=== PATIENT | male | born 1960 | race Caucasian/White ===

== ENCOUNTER 2016-10-08 19:25 | Inpatient (IN) | payer MEDICAID ==
[~2016-10-08] VITALS: Ht 157.5 cm; Wt 66.7 kg
[2016-10-08] MEDS ORDERED: IV SET PRIMARY 1 EA INFUS.SET MC ONE ×2 (19:48→20:49)
[2016-10-08] MEDS ORDERED: IV NS 0.9% 500 ML IV ONE (19:48)
[2016-10-08] MEDS ORDERED: IV NS 0.9% 500 ML BAG IV ONE (20:00)
[2016-10-08 20:15] LABS: BASOPHILS # (AUTO) 0.2 /CMM (0.0-0.2); BASOPHILS % (AUTO) 0.9 % (0.0-2.0); DIFF TOTAL % 100 %; EOSINOPHILS # (AUTO) 1.4 /CMM (0.0-0.7); EOSINOPHILS % (AUTO) 7.7 % (0.0-6.0); HEMATOCRIT 33 % (39-51); HEMOGLOBIN 10.8 g/dL (13.5-17.5); LYMPHOCYTES % (AUTO) 16.2 % (20.0-44.0); MEAN CORPUSCULAR HEMOGLOBIN 26 PG (26.0-33.0); MEAN CORPUSCULAR HGB CONC 32 g/dl (31.0-36.0); MEAN CORPUSCULAR VOLUME 80 fL (80-96); MONOCYTES # (AUTO) 1.9 /CMM (0.1-1.30); MONOCYTES % (AUTO) 10.3 % (2.0-12.0); NEUTROPHILS # (AUTO) 11.9 /CMM (1.8-8.9); NEUTROPHILS % (AUTO) 64.9 % (43.0-81.0); PLATELET COUNT (AUTO) 453 /CMM (150-450); RED BLOOD CELL COUNT(AUTO) 4.17 MIL/uL (4.5-6.0); WHITE BLOOD COUNT (AUTO) 18.4 K/uL (4.3-11.0)
[2016-10-08 20:27] LABS: INR 0.91 (0.87-1.13); PROTHROMBIN TIME 9.6 SECS (9.5-12.7)
[2016-10-08 20:28] LABS: ALANINE AMINOTRANSFERASE 17 U/L (12-78); ALBUMIN 2.8 g/dL (3.4-5.0); ANION GAP 9 (5-14); ASPARTATE AMINOTRANSFERASE 23 U/L (15-37); BILIRUBIN,DIRECT 0.1 mg/dL (0.0-0.2); BILIRUBIN,TOTAL 0.3 mg/dL (0.2-1.0); CARBON DIOXIDE 32 mmol/L (21-32); CHLORIDE 98 mmol/L (98-107); CREATININE 3.5 mg/dL (0.6-1.3); GFR 18 mL/min (>60); INDIRECT BILIRUBIN 0.2 mg/dL (0.0-1.1); POTASSIUM 3.7 mmol/L (3.5-5.1); SODIUM SERUM 136 mmol/L (136-145); TOTAL PROTEIN, SERUM 7.7 g/dL (6.4-8.2); UREA NITROGEN, BLOOD 39 mg/dL (7-18)
[2016-10-08 20:30] LABS: TROPONIN I < 0.017 ng/mL (0.00-0.056)
[2016-10-08 20:31] LABS: CALCIUM, SERUM 15.8 mg/dL (8.5-10.1); GLUCOSE 453 mg/dL (74-106)
[2016-10-08] MEDS ORDERED: IV NS 0.9% 1,000 ML ONE ×3 (20:49→23:50)
[2016-10-08] MEDS ORDERED: CEFTRIAXONE 1GM BAG (ER ONLY) 50 ML IV ONE ×2 (20:49→21:00)
[2016-10-08] MEDS ORDERED: SECONDARY IV SET 1 EA INFUS.SET MC ONE ×2 (20:49→22:37)
[2016-10-08 21:00] LABS: KETONES,URINE Negative (NEGATIVE); LEUKOCYTE ESTERASE ,URINE Negative (NEGATIVE)
[2016-10-08] MEDS ORDERED: IV NS 0.9% 1,000 ML BAG IV ONE ×2 (21:00→23:00)
[2016-10-08 21:04] LABS: ADD UA MICROSCOPIC YES
[2016-10-08 21:13] LABS: ADD URINE CULTURE NO; RBC,URINE 0-2 /HPF (0-2)
[2016-10-08] MEDS ORDERED: QUET25TA PO (21:33)
[2016-10-08] MEDS ORDERED: SITA100T PO (21:33)
[2016-10-08] MEDS ORDERED: PARO10TA26 PO (21:33)
[2016-10-08] MEDS ORDERED: LEFL20TA PO (21:33)
[2016-10-08] MEDS ORDERED: ATOR40TA PO (21:33)
[2016-10-08] MEDS ORDERED: GABA-534 PO (21:33)
[2016-10-08] MEDS ORDERED: MELA3TAB PO (21:33)
[2016-10-08 21:58] LABS: LACTIC ACID 2.7 mmol/L (0.4-2.0)
[2016-10-08] MEDS ORDERED: DEXTROSE 50%-WATER 50 ML DISP.SYRIN IV PRN (22:00)
[2016-10-08] MEDS ORDERED: MAGNESIUM HYDROXIDE 30 ML UDC PO PRN (22:00)
[2016-10-08] MEDS ORDERED: MAG HYDROX/AL HYDROX/SIMETH 30 ML UDC PO PRN (22:00)
[2016-10-08] MEDS ORDERED: ONDANSETRON HCL/PF 4 MG/2 ML VIAL IVP PRN (22:00)
[2016-10-08] MEDS ORDERED: ACETAMINOPHEN 325 MG TABLET PO PRN (22:00)
[2016-10-08] MEDS ORDERED: IV NS 0.9% 1,000 ML IV PRN (22:00)
[2016-10-08] MEDS ORDERED: Z GUARD REMEDY 2 OZ OINT TP PRN (22:00)
[2016-10-08 22:01] LABS: *LACTIC ACID REFLEX FLAG YES
[2016-10-08] MEDS ORDERED: QUETIAPINE FUMARATE 25 MG TABLET ONE (22:13)
[2016-10-08 22:18] VITALS: BP 130/81
[2016-10-08] MEDS ORDERED: IV SET PRIMARY PUMP SET 1 EA INFUS.SET MC ONE (22:36)
[2016-10-08 22:37] LABS: IRON, SERUM 40 ug/dl (50-175); PERCENT SATURATION 18 % (14-33); TOTAL IRON BINDING CAPACITY 224 ug/dl (250-450)
[2016-10-08] MEDS: BLOOD SUGAR DIAGNOSTIC 1 EACH STRIP VI SCH (22:42)
[2016-10-08] MEDS: *INSULIN REGULAR(HUMULIN R)HUM 100 UNIT/ML VIAL SQ PRN (22:56)
[2016-10-08] MEDS: QUETIAPINE FUMARATE 25 MG TABLET PO SCH (22:59)
[2016-10-08] MEDS ORDERED: LEVOFLOXACIN 750 MG /D5W 150ML 750 MG in PREMIX 1 EA IV SCH (23:00)
[2016-10-08] MEDS ORDERED: LEVOFLOXACIN 750 MG /D5W 150ML 150 ML IV ONE (23:49)
[2016-10-09] VITALS (7 sets, daily range): BP systolic 106–147; BP diastolic 60–76
[2016-10-09] MEDS: IV NS 0.9% 1,000 ML IV PRN (00:03)
[2016-10-09] MEDS ORDERED: ZOLPIDEM TARTRATE 5 MG TABLET ONE (01:44)
[2016-10-09] MEDS: ZOLPIDEM TARTRATE 5 MG TABLET PO PRN (01:48)
[2016-10-09 02:39] LABS: AMYLASE 48 U/L (25-115)
[2016-10-09 05:31] LABS: BASOPHILS # (AUTO) 0.1 /CMM (0.0-0.2); BASOPHILS % (AUTO) 0.7 % (0.0-2.0); DIFF TOTAL % 100 %; EOSINOPHILS # (AUTO) 0.9 /CMM (0.0-0.7); EOSINOPHILS % (AUTO) 4.9 % (0.0-6.0); HEMATOCRIT 32 % (39-51); LYMPHOCYTES # (AUTO) 1.2 /CMM (0.8-4.8); LYMPHOCYTES % (AUTO) 6.7 % (20.0-44.0); MEAN CORPUSCULAR HEMOGLOBIN 26 PG (26.0-33.0); MEAN CORPUSCULAR HGB CONC 32 g/dl (31.0-36.0); MEAN CORPUSCULAR VOLUME 81 fL (80-96); MONOCYTES % (AUTO) 5.4 % (2.0-12.0); NEUTROPHILS # (AUTO) 15.3 /CMM (1.8-8.9); NEUTROPHILS % (AUTO) 82.3 % (43.0-81.0); PLATELET COUNT (AUTO) 431 /CMM (150-450); WHITE BLOOD COUNT (AUTO) 18.5 K/uL (4.3-11.0)
[2016-10-09 05:44] LABS: CREATININE 2.9 mg/dL (0.6-1.3); PHOSPHORUS 3.7 mg/dL (2.5-4.9); POTASSIUM 3.7 mmol/L (3.5-5.1)
[2016-10-09 05:47] LABS: CALCIUM, SERUM 13.9 mg/dL (8.5-10.1)
[2016-10-09 05:49] LABS: INR 0.96 (0.87-1.13); PROTHROMBIN TIME 10.4 SECS (9.5-12.7)
[2016-10-09 05:54] LABS: THYROID STIMULATING HORMONE 0.63 uIU/mL (0.358-3.74)
[2016-10-09 06:04] LABS: HYPOCHROMASIA 1+
[2016-10-09 06:48] LABS: ERYTHROCYTE SEDIMENTATION RATE 49 MM/HR (0-20)
[2016-10-09] MEDS: BLOOD SUGAR DIAGNOSTIC 1 EACH STRIP VI SCH ×4 (07:02→22:30)
[2016-10-09] MEDS ORDERED: LEFLUNOMIDE PO SCH (09:00)
[2016-10-09] MEDS: PANTOPRAZOLE 40 MG TABLET.DR PO SCH (09:05)
[2016-10-09] MEDS: GABAPENTIN 300 MG CAPSULE PO SCH ×4 (09:05→21:31)
[2016-10-09] MEDS: PAROXETINE HCL 10 MG TABLET PO SCH (11:33)
[2016-10-09] MEDS: INSULIN REGULAR, HUMAN 100 UNIT/ML 3 ML VIAL SQ PRN ×2 (11:36→17:15)
[2016-10-09] MEDS: ATORVASTATIN 40 MG TABLET PO SCH (17:15)
[2016-10-09] MEDS ORDERED: Medication Not On Formulary EA (Melatonin 6 MG) PO SCH (18:00)
[2016-10-09 18:19] LABS: KETONES,URINE NEGATIVE (NEGATIVE); LEUKOCYTE ESTERASE ,URINE TRACE (NEGATIVE); PH,URINE 6.5 (5.0-8.0)
[2016-10-09 18:20] LABS: URINE TOTAL PROTEIN 38.4 mg/dL (0-11.9)
[2016-10-09 18:26] LABS: ADD UA MICROSCOPIC YES
[2016-10-09 18:29] LABS: ADD URINE CULTURE YES
[2016-10-09] MEDS: QUETIAPINE FUMARATE 25 MG TABLET PO SCH (22:25)
[2016-10-09] MEDS: *INSULIN REGULAR(HUMULIN R)HUM 100 UNIT/ML VIAL SQ PRN (22:59)
[2016-10-10] MEDS: BLOOD SUGAR DIAGNOSTIC 1 EACH STRIP VI SCH ×4 (05:45→21:33)
[2016-10-10 07:49] LABS: BASOPHILS # (AUTO) 0.1 /CMM (0.0-0.2); BASOPHILS % (AUTO) 0.5 % (0.0-2.0); DIFF TOTAL % 100 %; EOSINOPHILS # (AUTO) 1.7 /CMM (0.0-0.7); EOSINOPHILS % (AUTO) 10.7 % (0.0-6.0); HEMATOCRIT 30 % (39-51); HEMOGLOBIN 9.7 g/dL (13.5-17.5); LYMPHOCYTES # (AUTO) 3.6 /CMM (0.8-4.8); LYMPHOCYTES % (AUTO) 22.8 % (20.0-44.0); MEAN CORPUSCULAR HEMOGLOBIN 26 PG (26.0-33.0); MEAN CORPUSCULAR HGB CONC 32 g/dl (31.0-36.0); MEAN CORPUSCULAR VOLUME 80 fL (80-96); MONOCYTES # (AUTO) 1.6 /CMM (0.1-1.30); PLATELET COUNT (AUTO) 404 /CMM (150-450); RED BLOOD CELL COUNT(AUTO) 3.74 MIL/uL (4.5-6.0)
[2016-10-10 08:00] VITALS: BP 114/70
[2016-10-10 08:12] LABS: ALBUMIN 2.4 g/dL (3.4-5.0); BILIRUBIN,TOTAL 0.3 mg/dL (0.2-1.0); CALCIUM, SERUM 12.1 mg/dL (8.5-10.1); CREATININE 3.3 mg/dL (0.6-1.3); PHOSPHORUS 3.8 mg/dL (2.5-4.9); POTASSIUM 3.8 mmol/L (3.5-5.1); TOTAL PROTEIN, SERUM 6.5 g/dL (6.4-8.2)
[2016-10-10] MEDS: PANTOPRAZOLE 40 MG TABLET.DR PO SCH (08:27)
[2016-10-10] MEDS: PAROXETINE HCL 10 MG TABLET PO SCH (08:27)
[2016-10-10] MEDS: GABAPENTIN 300 MG CAPSULE PO SCH ×4 (08:27→21:32)
[2016-10-10 08:33] LABS: CREATININE, URINE 51.2 MG/DL (30.0-125.0); URINE TOTAL PROTEIN 42.7 mg/dL (0-11.9)
[2016-10-10 08:46] LABS: KETONES,URINE NEGATIVE (NEGATIVE); LEUKOCYTE ESTERASE ,URINE NEGATIVE (NEGATIVE)
[2016-10-10 08:49] LABS: ADD UA MICROSCOPIC YES
[2016-10-10 08:51] LABS: ADD URINE CULTURE NO; RBC,URINE 0-2 /HPF (0-2); WBC,URINE NONE SEEN /HPF (0-3)
[2016-10-10] MEDS: INSULIN REGULAR, HUMAN 100 UNIT/ML 3 ML VIAL SQ PRN ×2 (11:42→16:59)
[2016-10-10] MEDS: IV NS 0.9% 1,000 ML IV PRN (14:02)
[2016-10-10 16:00] VITALS: BP 119/70
[2016-10-10] MEDS: ATORVASTATIN 40 MG TABLET PO SCH (17:11)
[2016-10-10 20:00] VITALS: BP 121/70
[2016-10-10] MEDS: QUETIAPINE FUMARATE 25 MG TABLET PO SCH (21:33)
[2016-10-10] MEDS: *INSULIN REGULAR(HUMULIN R)HUM 100 UNIT/ML VIAL SQ PRN (21:37)
[2016-10-10] MEDS ORDERED: LEVOFLOXACIN 750 MG /D5W 150ML 750 MG in PREMIX 1 EA IV SCH (23:00)
[2016-10-11] MEDS: IV NS 0.9% 1,000 ML IV PRN ×3 (00:43→21:28)
[2016-10-11] MEDS: INSULIN REGULAR, HUMAN 100 UNIT/ML 3 ML VIAL SQ PRN ×3 (06:48→17:04)
[2016-10-11] MEDS: BLOOD SUGAR DIAGNOSTIC 1 EACH STRIP VI SCH ×5 (07:30→21:21)
[2016-10-11 07:54] VITALS: BP 105/60
[2016-10-11 08:00] VITALS: BP 105/60
[2016-10-11] MEDS: GABAPENTIN 300 MG CAPSULE PO SCH ×4 (08:42→21:21)
[2016-10-11] MEDS: PAROXETINE HCL 10 MG TABLET PO SCH (08:42)
[2016-10-11 09:15] LABS: BASOPHILS # (AUTO) 0.1 /CMM (0.0-0.2); BASOPHILS % (AUTO) 0.5 % (0.0-2.0); DIFF TOTAL % 100 %; EOSINOPHILS # (AUTO) 1.5 /CMM (0.0-0.7); EOSINOPHILS % (AUTO) 9.4 % (0.0-6.0); HEMATOCRIT 32 % (39-51); HEMOGLOBIN 10.1 g/dL (13.5-17.5); LYMPHOCYTES # (AUTO) 3.6 /CMM (0.8-4.8); LYMPHOCYTES % (AUTO) 22.6 % (20.0-44.0); MEAN CORPUSCULAR HEMOGLOBIN 26 PG (26.0-33.0); MEAN CORPUSCULAR HGB CONC 32 g/dl (31.0-36.0); MEAN CORPUSCULAR VOLUME 81 fL (80-96); MONOCYTES # (AUTO) 1.7 /CMM (0.1-1.30); MONOCYTES % (AUTO) 10.5 % (2.0-12.0); PLATELET COUNT (AUTO) 407 /CMM (150-450); RED BLOOD CELL COUNT(AUTO) 3.96 MIL/uL (4.5-6.0); WHITE BLOOD COUNT (AUTO) 15.9 K/uL (4.3-11.0)
[2016-10-11 09:40] LABS: CALCIUM, SERUM 11.9 mg/dL (8.5-10.1); PHOSPHORUS 3.9 mg/dL (2.5-4.9)
[2016-10-11 15:58] VITALS: BP 116/68
[2016-10-11 16:00] VITALS: BP 116/68
[2016-10-11] MEDS: ATORVASTATIN 40 MG TABLET PO SCH (17:04)
[2016-10-11 20:00] VITALS: BP 128/75
[2016-10-11] MEDS: QUETIAPINE FUMARATE 25 MG TABLET PO SCH (21:20)
[2016-10-11] MEDS: *INSULIN REGULAR(HUMULIN R)HUM 100 UNIT/ML VIAL SQ PRN (21:26)
[2016-10-11] MEDS: ZOLPIDEM TARTRATE 5 MG TABLET PO PRN (21:28)
[2016-10-12] MEDS: INSULIN REGULAR, HUMAN 100 UNIT/ML 3 ML VIAL SQ PRN ×3 (06:32→17:32)
[2016-10-12] MEDS: BLOOD SUGAR DIAGNOSTIC 1 EACH STRIP VI SCH ×4 (06:33→22:31)
[2016-10-12 08:00] VITALS: BP 111/73
[2016-10-12 08:07] LABS: *SPE ALBUMIN 2.7 g/dL (2.9-4.4)
[2016-10-12] MEDS: PAROXETINE HCL 10 MG TABLET PO SCH (08:18)
[2016-10-12] MEDS: GABAPENTIN 300 MG CAPSULE PO SCH ×4 (08:18→22:30)
[2016-10-12 08:47] LABS: BASOPHILS # (AUTO) 0.1 /CMM (0.0-0.2); BASOPHILS % (AUTO) 0.4 % (0.0-2.0); DIFF TOTAL % 100 %; EOSINOPHILS # (AUTO) 1.2 /CMM (0.0-0.7); HEMATOCRIT 31 % (39-51); HEMOGLOBIN 9.8 g/dL (13.5-17.5); LYMPHOCYTES % (AUTO) 21.9 % (20.0-44.0); MEAN CORPUSCULAR HEMOGLOBIN 26 PG (26.0-33.0); MEAN CORPUSCULAR HGB CONC 32 g/dl (31.0-36.0); MEAN CORPUSCULAR VOLUME 81 fL (80-96); MONOCYTES # (AUTO) 1.4 /CMM (0.1-1.30); MONOCYTES % (AUTO) 10.3 % (2.0-12.0); NEUTROPHILS % (AUTO) 58.4 % (43.0-81.0); PLATELET COUNT (AUTO) 392 /CMM (150-450); WHITE BLOOD COUNT (AUTO) 13.6 K/uL (4.3-11.0)
[2016-10-12 08:53] LABS: CALCIUM, SERUM 11.2 mg/dL (8.5-10.1); CREATININE 2.6 mg/dL (0.6-1.3); PHOSPHORUS 3.6 mg/dL (2.5-4.9); POTASSIUM 3.8 mmol/L (3.5-5.1)
[2016-10-12 10:41] LABS: %FREE PSA 16.6 % (0-10); FREE PSA 0.1 ng/mL (0.00-45)
[2016-10-12] MEDS ORDERED: PAMIDRONATE 30 MG in IV NS 0.9% 500 ML IV ONE (11:00)
[2016-10-12 11:35] LABS: BAND % (MANUAL) 1 % (0.0-5.0); EOSINOPHILS % (MANUAL) 2 % (0-4); LYMPHOCYTES % (MANUAL) 28 % (16-48)
[2016-10-12 11:36] LABS: ANISOCYTOSIS 1+; PLATELET ESTIMATE INCREASED
[2016-10-12] MEDS: ATORVASTATIN 40 MG TABLET PO SCH (16:59)
[2016-10-12 18:43] VITALS: BP 134/77
[2016-10-12] MEDS ORDERED: TUBERCULIN,PURIF.PROT.DERIV. 5 TU/0.1 ML VIAL ID ONE (19:00)
[2016-10-12 20:00] VITALS: BP 141/82
[2016-10-12] MEDS ORDERED: IV SET PRIMARY PUMP SET 1 EA INFUS.SET MC ONE (22:05)
[2016-10-12] MEDS: IV NS 0.9% 1,000 ML IV PRN (22:30)
[2016-10-12] MEDS: QUETIAPINE FUMARATE 25 MG TABLET PO SCH (22:31)
[2016-10-13 03:09] LABS: VIT D, 25-HYDROXY 14.3 ng/mL (30.0-100.0)
[2016-10-13 04:00] VITALS: BP 128/81
[2016-10-13 06:53] LABS: BASOPHILS # (AUTO) 0.1 /CMM (0.0-0.2); BASOPHILS % (AUTO) 0.4 % (0.0-2.0); DIFF TOTAL % 100 %; EOSINOPHILS # (AUTO) 1.2 /CMM (0.0-0.7); EOSINOPHILS % (AUTO) 8.7 % (0.0-6.0); HEMATOCRIT 32 % (39-51); HEMOGLOBIN 10.2 g/dL (13.5-17.5); LYMPHOCYTES # (AUTO) 3.1 /CMM (0.8-4.8); LYMPHOCYTES % (AUTO) 22.6 % (20.0-44.0); MEAN CORPUSCULAR HEMOGLOBIN 26 PG (26.0-33.0); MEAN CORPUSCULAR HGB CONC 32 g/dl (31.0-36.0); MEAN CORPUSCULAR VOLUME 81 fL (80-96); MONOCYTES # (AUTO) 1.7 /CMM (0.1-1.30); MONOCYTES % (AUTO) 12.2 % (2.0-12.0); NEUTROPHILS # (AUTO) 7.8 /CMM (1.8-8.9); NEUTROPHILS % (AUTO) 56.1 % (43.0-81.0); PLATELET COUNT (AUTO) 397 /CMM (150-450); RED BLOOD CELL COUNT(AUTO) 3.93 MIL/uL (4.5-6.0); WHITE BLOOD COUNT (AUTO) 13.9 K/uL (4.3-11.0)
[2016-10-13 07:09] LABS: INR 0.94 (0.87-1.13); PROTHROMBIN TIME 10.2 SECS (9.5-12.7)
[2016-10-13 07:28] LABS: CALCIUM, SERUM 12.9 mg/dL (8.5-10.1); CREATININE 2.5 mg/dL (0.6-1.3); POTASSIUM 4.2 mmol/L (3.5-5.1)
[2016-10-13 08:00] VITALS: BP 98/57
[2016-10-13] MEDS: PAROXETINE HCL 10 MG TABLET PO SCH (08:10)
[2016-10-13] MEDS: FERROUS SULFATE (325 MG) 325 MG/TAB TABLET PO SCH ×2 (08:10→17:20)
[2016-10-13] MEDS: BLOOD SUGAR DIAGNOSTIC 1 EACH STRIP VI SCH ×4 (08:10→22:49)
[2016-10-13] MEDS: GABAPENTIN 300 MG CAPSULE PO SCH ×4 (08:11→21:03)
[2016-10-13 11:12] LABS: PTH, INTACT 7 pg/mL (15-65)
[2016-10-13 16:00] VITALS: BP 119/78
[2016-10-13] MEDS: ATORVASTATIN 40 MG TABLET PO SCH (17:20)
[2016-10-13] MEDS: INSULIN REGULAR, HUMAN 100 UNIT/ML 3 ML VIAL SQ PRN ×2 (17:24→21:31)
[2016-10-13 20:00] VITALS: BP 130/78
[2016-10-13] MEDS: QUETIAPINE FUMARATE 25 MG TABLET PO SCH (21:03)
[2016-10-13] MEDS: ZOLPIDEM TARTRATE 5 MG TABLET PO PRN (21:22)
[2016-10-14 02:19] VITALS: BP 130/78
[2016-10-14 04:00] VITALS: BP 109/63
[2016-10-14] MEDS: *INSULIN REGULAR(HUMULIN R)HUM 100 UNIT/ML VIAL SQ PRN ×2 (06:29→21:36)
[2016-10-14 06:52] LABS: BASOPHILS # (AUTO) 0.1 /CMM (0.0-0.2); DIFF TOTAL % 100 %; EOSINOPHILS # (AUTO) 1.2 /CMM (0.0-0.7); EOSINOPHILS % (AUTO) 8.6 % (0.0-6.0); HEMATOCRIT 32 % (39-51); HEMOGLOBIN 10.3 g/dL (13.5-17.5); LYMPHOCYTES # (AUTO) 3.5 /CMM (0.8-4.8); LYMPHOCYTES % (AUTO) 24.5 % (20.0-44.0); MEAN CORPUSCULAR HEMOGLOBIN 26 PG (26.0-33.0); MEAN CORPUSCULAR HGB CONC 33 g/dl (31.0-36.0); MEAN CORPUSCULAR VOLUME 81 fL (80-96); MONOCYTES % (AUTO) 13.9 % (2.0-12.0); NEUTROPHILS # (AUTO) 7.4 /CMM (1.8-8.9); PLATELET COUNT (AUTO) 376 /CMM (150-450); WHITE BLOOD COUNT (AUTO) 14.2 K/uL (4.3-11.0)
[2016-10-14 06:53] LABS: ALBUMIN 2.8 g/dL (3.4-5.0); BILIRUBIN,TOTAL 0.3 mg/dL (0.2-1.0); CALCIUM, SERUM 11.8 mg/dL (8.5-10.1); CREATININE 2.3 mg/dL (0.6-1.3); PHOSPHORUS 4.2 mg/dL (2.5-4.9); POTASSIUM 3.7 mmol/L (3.5-5.1); TOTAL PROTEIN, SERUM 7.1 g/dL (6.4-8.2)
[2016-10-14] MEDS: BLOOD SUGAR DIAGNOSTIC 1 EACH STRIP VI SCH ×4 (07:30→21:37)
[2016-10-14 08:00] VITALS: BP 98/62
[2016-10-14] MEDS: FERROUS SULFATE (325 MG) 325 MG/TAB TABLET PO SCH ×2 (08:33→18:20)
[2016-10-14] MEDS: GABAPENTIN 300 MG CAPSULE PO SCH ×4 (08:33→21:23)
[2016-10-14] MEDS: PAROXETINE HCL 10 MG TABLET PO SCH (08:33)
[2016-10-14] MEDS: IV NS 0.9% 1,000 ML IV PRN (08:33)
[2016-10-14] MEDS: INSULIN REGULAR, HUMAN 100 UNIT/ML 3 ML VIAL SQ PRN ×3 (08:43→18:22)
[2016-10-14 09:40] LABS: BAND % (MANUAL) 1 % (0.0-5.0); EOSINOPHILS % (MANUAL) 9 % (0-4); LYMPHOCYTES % (MANUAL) 16 % (16-48)
[2016-10-14 09:41] LABS: ANISOCYTOSIS 1+; HYPOCHROMASIA 1+; PLATELET ESTIMATE INCREASED
[2016-10-14] MEDS ORDERED: SODIUM CL FOR INHALATION 3% 15 ML VIAL.NEB IH ONE (09:52)
[2016-10-14] MEDS ORDERED: IV SET PRIMARY PUMP SET 1 EA INFUS.SET MC ONE (11:09)
[2016-10-14 16:00] VITALS: BP 122/75
[2016-10-14] MEDS: ATORVASTATIN 40 MG TABLET PO SCH (18:20)
[2016-10-14] MEDS ORDERED: LIDOCAINE 1% INJ 50 ML MDV IJ ONE (18:30)
[2016-10-14 20:00] VITALS: BP 127/83
[2016-10-14] MEDS: QUETIAPINE FUMARATE 25 MG TABLET PO SCH (21:23)
[2016-10-14] MEDS: ZOLPIDEM TARTRATE 5 MG TABLET PO PRN (22:08)
[2016-10-15] MEDS: IV NS 0.9% 1,000 ML IV PRN ×2 (03:31→21:38)
[2016-10-15 04:00] VITALS: BP 98/72
[2016-10-15] MEDS: BLOOD SUGAR DIAGNOSTIC 1 EACH STRIP VI SCH ×4 (06:49→21:04)
[2016-10-15] MEDS: INSULIN REGULAR, HUMAN 100 UNIT/ML 3 ML VIAL SQ PRN ×4 (06:49→21:21)
[2016-10-15 07:03] LABS: BASOPHILS # (AUTO) 0.1 /CMM (0.0-0.2); BASOPHILS % (AUTO) 0.8 % (0.0-2.0); DIFF TOTAL % 100 %; EOSINOPHILS # (AUTO) 1.2 /CMM (0.0-0.7); EOSINOPHILS % (AUTO) 8.4 % (0.0-6.0); HEMATOCRIT 30 % (39-51); HEMOGLOBIN 9.8 g/dL (13.5-17.5); LYMPHOCYTES # (AUTO) 3.5 /CMM (0.8-4.8); LYMPHOCYTES % (AUTO) 23.9 % (20.0-44.0); MEAN CORPUSCULAR HEMOGLOBIN 26 PG (26.0-33.0); MEAN CORPUSCULAR HGB CONC 32 g/dl (31.0-36.0); MEAN CORPUSCULAR VOLUME 81 fL (80-96); MONOCYTES # (AUTO) 2.1 /CMM (0.1-1.30); MONOCYTES % (AUTO) 14.5 % (2.0-12.0); NEUTROPHILS # (AUTO) 7.7 /CMM (1.8-8.9); NEUTROPHILS % (AUTO) 52.4 % (43.0-81.0); PLATELET COUNT (AUTO) 365 /CMM (150-450); RED BLOOD CELL COUNT(AUTO) 3.74 MIL/uL (4.5-6.0); WHITE BLOOD COUNT (AUTO) 14.7 K/uL (4.3-11.0)
[2016-10-15 07:47] LABS: CALCIUM, SERUM 11.1 mg/dL (8.5-10.1); CREATININE 2.2 mg/dL (0.6-1.3); PHOSPHORUS 3.5 mg/dL (2.5-4.9); POTASSIUM 3.9 mmol/L (3.5-5.1)
[2016-10-15 08:00] VITALS: BP 104/70
[2016-10-15] MEDS: FERROUS SULFATE (325 MG) 325 MG/TAB TABLET PO SCH ×2 (08:17→16:59)
[2016-10-15] MEDS: PAROXETINE HCL 10 MG TABLET PO SCH (08:17)
[2016-10-15] MEDS: GABAPENTIN 300 MG CAPSULE PO SCH ×4 (08:17→21:04)
[2016-10-15 08:55] LABS: ALBUMIN 2.7 g/dL (3.4-5.0); BILIRUBIN,TOTAL 0.3 mg/dL (0.2-1.0); TOTAL PROTEIN, SERUM 7.1 g/dL (6.4-8.2)
[2016-10-15] MEDS ORDERED: Magnesium 1GM/D5W 100ML PREMIX 100 ML IV SCH (13:00)
[2016-10-15 16:00] VITALS: BP 117/75
[2016-10-15] MEDS: ATORVASTATIN 40 MG TABLET PO SCH (16:59)
[2016-10-15] MEDS ORDERED: LEVOFLOXACIN (500MG) 500 MG TABLET PO SCH (17:00)
[2016-10-15] MEDS ORDERED: CEFEPIME 1 GM VIAL IM SCH (18:00)
[2016-10-15] MEDS ORDERED: SECONDARY IV SET 1 EA INFUS.SET MC ONE (18:06)
[2016-10-15] MEDS: CEFEPIME 1 GM in IV D5W 50 ML IV SCH (18:11)
[2016-10-15 20:00] VITALS: BP_SYST 110; BP_SYST 120; BP_DIAS 58; BP_DIAS 73
[2016-10-15] MEDS: QUETIAPINE FUMARATE 25 MG TABLET PO SCH (21:04)
[2016-10-15] MEDS: HYDROCODONE/APAP 5/325MG 1 EACH TABLET PO PRN (21:04)
[2016-10-15] MEDS ORDERED: IV SET PRIMARY PUMP SET 1 EA INFUS.SET MC ONE (21:12)
[2016-10-15] MEDS: ZOLPIDEM TARTRATE 5 MG TABLET PO PRN (21:19)
[2016-10-16 04:00] VITALS: BP 107/65
[2016-10-16] MEDS: HYDROCODONE/APAP 5/325MG 1 EACH TABLET PO PRN ×3 (05:40→21:21)
[2016-10-16 06:34] LABS: BASOPHILS # (AUTO) 0.1 /CMM (0.0-0.2); BASOPHILS % (AUTO) 0.8 % (0.0-2.0); DIFF TOTAL % 100 %; EOSINOPHILS # (AUTO) 1.3 /CMM (0.0-0.7); EOSINOPHILS % (AUTO) 9.4 % (0.0-6.0); HEMATOCRIT 29 % (39-51); HEMOGLOBIN 9.3 g/dL (13.5-17.5); LYMPHOCYTES # (AUTO) 2.5 /CMM (0.8-4.8); LYMPHOCYTES % (AUTO) 17.3 % (20.0-44.0); MEAN CORPUSCULAR HEMOGLOBIN 26 PG (26.0-33.0); MEAN CORPUSCULAR HGB CONC 32 g/dl (31.0-36.0); MEAN CORPUSCULAR VOLUME 81 fL (80-96); MONOCYTES # (AUTO) 1.7 /CMM (0.1-1.30); MONOCYTES % (AUTO) 11.9 % (2.0-12.0); NEUTROPHILS # (AUTO) 8.6 /CMM (1.8-8.9); NEUTROPHILS % (AUTO) 60.6 % (43.0-81.0); PLATELET COUNT (AUTO) 341 /CMM (150-450); RED BLOOD CELL COUNT(AUTO) 3.57 MIL/uL (4.5-6.0); WHITE BLOOD COUNT (AUTO) 14.2 K/uL (4.3-11.0)
[2016-10-16 06:50] LABS: CALCIUM, SERUM 10.9 mg/dL (8.5-10.1); CREATININE 2.1 mg/dL (0.6-1.3); PHOSPHORUS 3.7 mg/dL (2.5-4.9); POTASSIUM 4.1 mmol/L (3.5-5.1)
[2016-10-16] MEDS: INSULIN REGULAR, HUMAN 100 UNIT/ML 3 ML VIAL SQ PRN ×2 (06:57→11:58)
[2016-10-16] MEDS: BLOOD SUGAR DIAGNOSTIC 1 EACH STRIP VI SCH ×4 (07:00→21:21)
[2016-10-16 08:00] VITALS: BP 117/76
[2016-10-16] MEDS: SODIUM CL FOR INHALATION 3% 15 ML VIAL.NEB IH SCH ×3 (08:25→20:30)
[2016-10-16] MEDS: GABAPENTIN 300 MG CAPSULE PO SCH ×4 (08:42→21:21)
[2016-10-16] MEDS: PAROXETINE HCL 10 MG TABLET PO SCH (08:42)
[2016-10-16] MEDS: FERROUS SULFATE (325 MG) 325 MG/TAB TABLET PO SCH ×2 (08:42→16:12)
[2016-10-16] MEDS: IV NS 0.9% 1,000 ML IV PRN ×2 (10:27→21:28)
[2016-10-16 16:00] VITALS: BP 130/75
[2016-10-16] MEDS ORDERED: LEVOFLOXACIN (250MG) 250 MG TABLET PO SCH (17:00)
[2016-10-16] MEDS: ATORVASTATIN 40 MG TABLET PO SCH (17:54)
[2016-10-16] MEDS: CEFEPIME 1 GM in IV D5W 50 ML IV SCH (17:55)
[2016-10-16 20:00] VITALS: BP 123/72
[2016-10-16] MEDS: QUETIAPINE FUMARATE 25 MG TABLET PO SCH (21:21)
[2016-10-16] MEDS: *INSULIN REGULAR(HUMULIN R)HUM 100 UNIT/ML VIAL SQ PRN (21:25)
[2016-10-16] MEDS: ZOLPIDEM TARTRATE 5 MG TABLET PO PRN (22:00)
[2016-10-17] MEDS: SODIUM CL FOR INHALATION 3% 15 ML VIAL.NEB IH SCH ×4 (02:30→20:10)
[2016-10-17] MEDS: HYDROCODONE/APAP 5/325MG 1 EACH TABLET PO PRN ×5 (02:52→21:35)
[2016-10-17 04:00] VITALS: BP 104/66
[2016-10-17] MEDS: BLOOD SUGAR DIAGNOSTIC 1 EACH STRIP VI SCH ×4 (06:31→21:35)
[2016-10-17] MEDS: INSULIN REGULAR, HUMAN 100 UNIT/ML 3 ML VIAL SQ PRN ×2 (06:32→17:17)
[2016-10-17 08:00] VITALS: BP 117/78
[2016-10-17] MEDS: PAROXETINE HCL 10 MG TABLET PO SCH (08:12)
[2016-10-17] MEDS: FERROUS SULFATE (325 MG) 325 MG/TAB TABLET PO SCH ×2 (08:12→17:15)
[2016-10-17] MEDS: GABAPENTIN 300 MG CAPSULE PO SCH ×4 (08:12→21:35)
[2016-10-17 16:00] VITALS: BP 138/76
[2016-10-17] MEDS: CEFEPIME 1 GM in IV D5W 50 ML IV SCH (17:15)
[2016-10-17] MEDS: ATORVASTATIN 40 MG TABLET PO SCH (17:15)
[2016-10-17] MEDS: IV NS 0.9% 1,000 ML IV PRN (19:59)
[2016-10-17 20:00] VITALS: BP 125/74
[2016-10-17] MEDS ORDERED: AZITHROMYCIN 500 MG in IV D5W 250 ML IV SCH (21:30)
[2016-10-17] MEDS: ZOLPIDEM TARTRATE 5 MG TABLET PO PRN (21:35)
[2016-10-17] MEDS: QUETIAPINE FUMARATE 25 MG TABLET PO SCH (21:35)
[2016-10-18] MEDS: HYDROCODONE/APAP 5/325MG 1 EACH TABLET PO PRN ×5 (01:20→22:18)
[2016-10-18] MEDS: SODIUM CL FOR INHALATION 3% 15 ML VIAL.NEB IH SCH ×5 (02:30→22:11)
[2016-10-18 04:00] VITALS: BP 116/70
[2016-10-18] MEDS ORDERED: MORPHINE SULFATE INJ 2 MG/ML DISP.SYRIN ONE (04:25)
[2016-10-18] MEDS ORDERED: MORPHINE SULFATE INJ 2 MG/ML DISP.SYRIN IVP ONE (04:30)
[2016-10-18] MEDS: BLOOD SUGAR DIAGNOSTIC 1 EACH STRIP VI SCH ×4 (06:37→22:19)
[2016-10-18] MEDS: INSULIN REGULAR, HUMAN 100 UNIT/ML 3 ML VIAL SQ PRN ×2 (06:42→22:20)
[2016-10-18 08:00] VITALS: BP 117/68
[2016-10-18] MEDS: GABAPENTIN 300 MG CAPSULE PO SCH ×4 (08:28→22:18)
[2016-10-18] MEDS: FERROUS SULFATE (325 MG) 325 MG/TAB TABLET PO SCH ×2 (08:28→17:12)
[2016-10-18] MEDS ORDERED: AZITHROMYCIN 500 MG in IV D5W 250 ML IV SCH ×2 (08:30→09:00)
[2016-10-18] MEDS: PAROXETINE HCL 10 MG TABLET PO SCH (08:33)
[2016-10-18] MEDS: AZITHROMYCIN 500 MG in IV D5W 250 ML IV SCH (08:34)
[2016-10-18] MEDS ORDERED: SECONDARY IV SET 1 EA INFUS.SET MC ONE ×2 (08:41→16:59)
[2016-10-18] MEDS ORDERED: IV SET PRIMARY PUMP SET 1 EA INFUS.SET MC ONE (08:41)
[2016-10-18 10:55] LABS: BASOPHILS # (AUTO) 0.2 /CMM (0.0-0.2); BASOPHILS % (AUTO) 1.3 % (0.0-2.0); DIFF TOTAL % 100 %; EOSINOPHILS # (AUTO) 1.3 /CMM (0.0-0.7); EOSINOPHILS % (AUTO) 10.3 % (0.0-6.0); HEMATOCRIT 32 % (39-51); HEMOGLOBIN 10.1 g/dL (13.5-17.5); LYMPHOCYTES % (AUTO) 23.9 % (20.0-44.0); MEAN CORPUSCULAR HEMOGLOBIN 26 PG (26.0-33.0); MEAN CORPUSCULAR HGB CONC 31 g/dl (31.0-36.0); MEAN CORPUSCULAR VOLUME 82 fL (80-96); MONOCYTES # (AUTO) 1.7 /CMM (0.1-1.30); MONOCYTES % (AUTO) 13.5 % (2.0-12.0); NEUTROPHILS # (AUTO) 6.5 /CMM (1.8-8.9); PLATELET COUNT (AUTO) 391 /CMM (150-450); RED BLOOD CELL COUNT(AUTO) 3.92 MIL/uL (4.5-6.0); WHITE BLOOD COUNT (AUTO) 12.7 K/uL (4.3-11.0)
[2016-10-18 11:07] LABS: ALBUMIN 2.8 g/dL (3.4-5.0); BILIRUBIN,TOTAL 0.4 mg/dL (0.2-1.0); CALCIUM, SERUM 10.3 mg/dL (8.5-10.1); PHOSPHORUS 3.4 mg/dL (2.5-4.9); POTASSIUM 3.9 mmol/L (3.5-5.1); TOTAL PROTEIN, SERUM 7.2 g/dL (6.4-8.2)
[2016-10-18] MEDS: *INSULIN REGULAR(HUMULIN R)HUM 100 UNIT/ML VIAL SQ PRN (12:57)
[2016-10-18 16:00] VITALS: BP 109/60
[2016-10-18 16:31] VITALS: BP 109/60
[2016-10-18] MEDS: ATORVASTATIN 40 MG TABLET PO SCH (17:12)
[2016-10-18] MEDS: CEFEPIME 1 GM in IV D5W 50 ML IV SCH (18:11)
[2016-10-18 20:00] VITALS: BP 115/77
[2016-10-18] MEDS: QUETIAPINE FUMARATE 25 MG TABLET PO SCH (22:19)
[2016-10-18] MEDS: ZOLPIDEM TARTRATE 5 MG TABLET PO PRN (22:50)
[2016-10-19] MEDS: SODIUM CL FOR INHALATION 3% 15 ML VIAL.NEB IH SCH ×4 (02:30→19:25)
[2016-10-19 04:00] VITALS: BP 106/57
[2016-10-19] MEDS: HYDROCODONE/APAP 5/325MG 1 EACH TABLET PO PRN ×4 (05:11→18:50)
[2016-10-19] MEDS: BLOOD SUGAR DIAGNOSTIC 1 EACH STRIP VI SCH ×3 (06:49→17:52)
[2016-10-19 07:23] LABS: BASOPHILS # (AUTO) 0.2 /CMM (0.0-0.2); BASOPHILS % (AUTO) 1.1 % (0.0-2.0); DIFF TOTAL % 100 %; EOSINOPHILS # (AUTO) 1.3 /CMM (0.0-0.7); EOSINOPHILS % (AUTO) 9.6 % (0.0-6.0); HEMATOCRIT 30 % (39-51); HEMOGLOBIN 9.5 g/dL (13.5-17.5); LYMPHOCYTES # (AUTO) 2.7 /CMM (0.8-4.8); LYMPHOCYTES % (AUTO) 19.4 % (20.0-44.0); MEAN CORPUSCULAR HEMOGLOBIN 26 PG (26.0-33.0); MEAN CORPUSCULAR HGB CONC 32 g/dl (31.0-36.0); MEAN CORPUSCULAR VOLUME 81 fL (80-96); MONOCYTES % (AUTO) 14.7 % (2.0-12.0); NEUTROPHILS # (AUTO) 7.7 /CMM (1.8-8.9); NEUTROPHILS % (AUTO) 55.2 % (43.0-81.0); PLATELET COUNT (AUTO) 401 /CMM (150-450); RED BLOOD CELL COUNT(AUTO) 3.64 MIL/uL (4.5-6.0); WHITE BLOOD COUNT (AUTO) 13.9 K/uL (4.3-11.0)
[2016-10-19 07:40] LABS: CALCIUM, SERUM 10.1 mg/dL (8.5-10.1); CREATININE 1.9 mg/dL (0.6-1.3); PHOSPHORUS 3.3 mg/dL (2.5-4.9); POTASSIUM 3.8 mmol/L (3.5-5.1)
[2016-10-19 08:00] VITALS: BP 116/75
[2016-10-19] MEDS: PAROXETINE HCL 10 MG TABLET PO SCH (09:39)
[2016-10-19] MEDS: FERROUS SULFATE (325 MG) 325 MG/TAB TABLET PO SCH ×2 (09:39→17:52)
[2016-10-19] MEDS: AZITHROMYCIN 500 MG in IV D5W 250 ML IV SCH (09:39)
[2016-10-19] MEDS: GABAPENTIN 300 MG CAPSULE PO SCH ×3 (09:39→17:52)
[2016-10-19] MEDS: INSULIN REGULAR, HUMAN 100 UNIT/ML 3 ML VIAL SQ PRN (12:32)
[2016-10-19] MEDS ORDERED: ISON300T4 PO (13:10)
[2016-10-19 16:00] VITALS: BP 106/70
[2016-10-19] MEDS: CEFEPIME 1 GM in IV D5W 50 ML IV SCH (17:52)
[2016-10-19] MEDS: IV NS 0.9% 1,000 ML IV PRN (17:52)
[2016-10-19] MEDS: ATORVASTATIN 40 MG TABLET PO SCH (17:52)
== END 2016-10-19 20:41 | DRG 871 ==
LOC: EDSEX 19:28 → ER 19:28 → TELE 21:37 → MED 10-09 08:39 → MEDSG1 10-12 18:16
PROVIDERS: ADMIT Internal Medicine; ATTEND Internal Medicine
PROC: 05H533Z Insertion of Infusion Device into Right Subclavian Vein, Percutaneous Approach (ICD-10-PCS; principal; 2016-10-14)
DX: A41.9 Sepsis, unspecified organism (principal); N17.0 Acute kidney failure with tubular necrosis; C90.00 Multiple myeloma not having achieved remission; N18.4 Chronic kidney disease, stage 4 (severe); E44.0 Moderate protein-calorie malnutrition; E87.2 Acidosis; E11.22 Type 2 diabetes mellitus with diabetic chronic kidney disease; E11.65 Type 2 diabetes mellitus with hyperglycemia; I13.10 Hypertensive heart and chronic kidney disease without heart failure, with stage 1 through stage 4 chronic kidney disease, or unspecified chronic kidney disease; E78.5 Hyperlipidemia, unspecified; G62.9 Polyneuropathy, unspecified; K21.9 Gastro-esophageal reflux disease without esophagitis; Z87.891 Personal history of nicotine dependence; F32.9 Major depressive disorder, single episode, unspecified; D63.8 Anemia in other chronic diseases classified elsewhere; E83.52 Hypercalcemia; I88.9 Nonspecific lymphadenitis, unspecified; D86.9 Sarcoidosis, unspecified; E86.1 Hypovolemia; F41.9 Anxiety disorder, unspecified; Z90.81 Acquired absence of spleen
CPT/HCPCS: 36415; 70260-TC; 71010-TC; 71250-TC; 72192-TC; 74150-TC; 76770-TC; 76942-TC; 80048-TC; 80053-TC; 80061-TC; 80076-TC; 81000-TC; 82150-TC; 82164; 82232; 82306; 82550-TC; 82570-TC; 82652; 82728-TC; 82746; 82945-TC; 82962-TC; 83540-TC; 83605-TC; 83615-TC; 83690-TC; 83735-TC; 83970; 84100-TC; 84153-TC; 84154-TC; 84155; 84155-TC; 84165; 84300-TC; 84439-TC; 84443-TC; 84484-TC; 85025-TC; 85045-TC; 85610-TC; 85652-TC; 85730-TC; 86140-TC; 86431-TC; 86580-TC; 87040-TC; 87081-TC; 87086-TC; 87116; 87206; 88305-TC; 88312-TC; 93307-TC; 94640-TC; 97001-TC; 97003-TC; 97116-TC; 97530-TC; A4216; A4218; A4606; A6402; J0456; J0692; J0696; J1815; J1956; J2270; J2430; J3475; J3490; J7030; J7040; J7060; Z7610

== ENCOUNTER 2016-10-30 13:33 | Emergency (ER) | payer MEDICAID ==
[~2016-10-30] VITALS: Ht 165.1 cm; Wt 52.2 kg
[~2016-10-30 13:33] MED LIST: ATOR40TA PO; GABA-534 PO; ISON300T4 PO; LEFL20TA PO; MELA3TAB PO; PARO10TA26 PO; QUET25TA PO; SITA100T PO
[2016-10-30 17:53] VITALS: BP 120/60
== END 2016-10-30 17:43 | disposition home or self-care (01) ==
LOC: ER 13:35
DX: J18.9 Pneumonia, unspecified organism (principal); K21.9 Gastro-esophageal reflux disease without esophagitis; F41.9 Anxiety disorder, unspecified; F20.9 Schizophrenia, unspecified; G47.00 Insomnia, unspecified
CPT/HCPCS: 71010; 82962; 99283; A4606; Z7610

== ENCOUNTER 2016-10-30 22:24 | Inpatient (IN) | payer MEDICAID ==
[~2016-10-30] VITALS: Ht 157.5 cm; Wt 64.0 kg
--- NOTE | 2016-10-30 23:06 | NUR ---
CALLED NURSING SUP. FOR NEGATIVE AIR PRESSURE ROOM TO R/U TB
--- NOTE | 2016-10-30 23:07 | NUR ---
PAGED EBER HARRELL NP
[2016-10-30 23:19] LABS: BASOPHILS # (AUTO) 0.1 /CMM (0.0-0.2); EOSINOPHILS # (AUTO) 1.5 /CMM (0.0-0.7); EOSINOPHILS % (AUTO) 9.8 % (0.0-6.0); HEMATOCRIT 36 % (39-51); HEMOGLOBIN 11.3 g/dL (13.5-17.5); LYMPHOCYTES # (AUTO) 3.8 /CMM (0.8-4.8); LYMPHOCYTES % (AUTO) 24.9 % (20.0-44.0); MEAN CORPUSCULAR HEMOGLOBIN 26 PG (26.0-33.0); MEAN CORPUSCULAR HGB CONC 32 g/dl (31.0-36.0); MEAN CORPUSCULAR VOLUME 82 fL (80-96); MONOCYTES # (AUTO) 1.9 /CMM (0.1-1.30); MONOCYTES % (AUTO) 12.5 % (2.0-12.0); NEUTROPHILS # (AUTO) 7.8 /CMM (1.8-8.9); NEUTROPHILS % (AUTO) 51.8 % (43.0-81.0); PLATELET COUNT (AUTO) 396 /CMM (150-450); RED BLOOD CELL COUNT(AUTO) 4.36 MIL/uL (4.5-6.0); WHITE BLOOD COUNT (AUTO) 15.1 K/uL (4.3-11.0)
--- NOTE | 2016-10-30 23:23 | NUR ---
DR. GONZALEZ SPEAKING TO JACKELINE CASILLAS REGARDING ADMISSION.
[2016-10-30 23:33] LABS: CREATININE 2.1 mg/dL (0.6-1.3); INR 0.93 (0.87-1.13); POTASSIUM 3.7 mmol/L (3.5-5.1)
--- NOTE | 2016-10-30 23:36 | NUR ---
PT ASSIGNED TO BED MS 101.
[2016-10-30 23:39] LABS: CALCIUM, SERUM 13.5 mg/dL (8.5-10.1)
[2016-10-30 23:40] LABS: LACTIC ACID 2.3 mmol/L (0.4-2.0)
--- NOTE | 2016-10-30 23:40 | NUR ---
LAB CALLED CRITICAL VALUE. LACTIC ACID 2.3 AND CALCIUM 13.5
--- NOTE | 2016-10-30 23:52 | NUR ---
REPORT GIVEN TO MS NURSE.
[2016-10-31] VITALS (7 sets, daily range): BP systolic 104–129; BP diastolic 48–80
--- NOTE | 2016-10-31 00:18 | NUR ---
PT BEING TRANSPORTED VIA GURNEY WITH RN AND EMT.
--- NOTE | 2016-10-31 00:30 | NUR ---
RN INITIAL NOTES RECEIVED PT VIA [facility]ON FROM EMERGENCY DEPARTMENT. A/O X3. ABLE TO MAKE NEEDS KNOWN. IN STABLE CONDITION.IN ISOLATION PRECAUTIONS FOR R/O TB. ROOM AIR, SATING WELL. NO C/O PAIN OR DISCOMFORT AT THIS TIME. IV #18G LAC SL, FLUSHING WELL, PATENT, CLEAN AND INTACT, NO S/S OF INFECTION NOTED. ALL SAFETY MEASURES IN PLACE. CALL LIGHT WITHIN EASY REACH. WILL CONTINUE TO MONITOR.
[2016-10-31 01:29] LABS: BILIRUBIN,DIRECT 0.1 mg/dL (0.0-0.2); BILIRUBIN,TOTAL 0.4 mg/dL (0.2-1.0)
[2016-10-31 01:32] LABS: LACTIC ACID REFLEX 1.6 mmol/L (0.4-1.9)
[2016-10-31] MEDS ORDERED: ONDANSETRON HCL/PF 4 MG/2 ML VIAL IVP PRN (02:30)
[2016-10-31] MEDS ORDERED: MAGNESIUM HYDROXIDE 30 ML UDC PO PRN (02:30)
[2016-10-31] MEDS ORDERED: ACETAMINOPHEN 325 MG TABLET PO PRN (02:30)
[2016-10-31] MEDS ORDERED: Z GUARD REMEDY 2 OZ OINT TP PRN (02:30)
--- NOTE | 2016-10-31 06:30 | NUR ---
MS RN CLOSING NOTES PT REMAINED IN STABLE CONDITION DURING SHIFT. ISOLATION PRECAUTIONS IN PLACE AT ALL TIMES. ALL SAFETY MEASURES IN PLACE. CALL LIGHT WITHIN REACH. WILL ENDORSE TO NEXT SHIFT FOR BUTCH.
--- NOTE | 2016-10-31 07:52 | NUR ---
AM RN NOTES RECEIVED PT IN BED, SLEEPING EASY TO AWAKE, ON ISOLATION, NO SOB OR DISTRESS NOTED, WILL MONITOR.
[2016-10-31] MEDS: SITAGLIPTIN PHOSPHATE 50 MG TABLET PO SCH (08:58)
[2016-10-31] MEDS: GABAPENTIN 300 MG CAPSULE PO SCH ×4 (08:58→21:22)
[2016-10-31] MEDS: LEFLUNOMIDE 10 MG TABLET PO SCH (08:58)
[2016-10-31] MEDS: PAROXETINE HCL 10 MG TABLET PO SCH (08:58)
[2016-10-31] MEDS: PANTOPRAZOLE 40 MG TABLET.DR PO SCH (08:58)
[2016-10-31] MEDS: ISONIAZID (300 MG) 300 MG TABLET PO SCH (12:06)
--- NOTE | 2016-10-31 15:44 | NUR ---
CARD SCRAPER (BJ) WAS NOTIFIED OF PT'S DIABETES HX. BLOOD GLUCOSE WAS CHECKED AND NO ACCUCHECKS NECESSARY AT THIS TIME PER MD ORDER
[2016-10-31] MEDS: ATORVASTATIN 40 MG TABLET PO SCH (17:17)
--- NOTE | 2016-10-31 18:44 | NUR ---
PT IN STABLE CONDITION, ON ISOLATION, NO SOB OR DISTRESS NOTED, NO FEVER OR COUGH, WITH GOOD PO INTAKE, WILL INDORSE TO NEXT SHIFT IN STABLE CONDITION.
[2016-10-31 19:27] LABS: CREATININE, URINE 51.1 MG/DL (30.0-125.0); URINE TOTAL PROTEIN 67.2 mg/dL (0-11.9)
[2016-10-31] MEDS: QUETIAPINE FUMARATE 25 MG TABLET PO SCH (21:22)
[2016-10-31] MEDS: ZOLPIDEM TARTRATE 5 MG TABLET PO PRN (21:25)
[2016-10-31] MEDS ORDERED: MELATONIN 6 MG PO SCH (22:00)
[2016-11-01 04:00] VITALS: BP 113/74
[2016-11-01 07:44] LABS: BASOPHILS # (AUTO) 0.2 /CMM (0.0-0.2); BASOPHILS % (AUTO) 1.3 % (0.0-2.0); EOSINOPHILS # (AUTO) 1.6 /CMM (0.0-0.7); EOSINOPHILS % (AUTO) 11.8 % (0.0-6.0); HEMATOCRIT 36 % (39-51); HEMOGLOBIN 11.4 g/dL (13.5-17.5); LYMPHOCYTES # (AUTO) 3.2 /CMM (0.8-4.8); LYMPHOCYTES % (AUTO) 23.1 % (20.0-44.0); MEAN CORPUSCULAR HEMOGLOBIN 26 PG (26.0-33.0); MEAN CORPUSCULAR HGB CONC 32 g/dl (31.0-36.0); MEAN CORPUSCULAR VOLUME 82 fL (80-96); MONOCYTES # (AUTO) 1.9 /CMM (0.1-1.30); MONOCYTES % (AUTO) 13.6 % (2.0-12.0); NEUTROPHILS # (AUTO) 6.9 /CMM (1.8-8.9); NEUTROPHILS % (AUTO) 50.2 % (43.0-81.0); PLATELET COUNT (AUTO) 372 /CMM (150-450); RDW COEFFICIENT OF VARIATION 16.3 (11.5-15.0); RED BLOOD CELL COUNT(AUTO) 4.38 MIL/uL (4.5-6.0); WHITE BLOOD COUNT (AUTO) 13.7 K/uL (4.3-11.0)
[2016-11-01 07:59] LABS: ALBUMIN 3.2 g/dL (3.4-5.0); BILIRUBIN,TOTAL 0.4 mg/dL (0.2-1.0); CREATININE 2.5 mg/dL (0.6-1.3); MAGNESIUM 2.3 mg/dL (1.8-2.4); PHOSPHORUS 4.3 mg/dL (2.5-4.9); POTASSIUM 4.3 mmol/L (3.5-5.1); TOTAL PROTEIN, SERUM 8.1 g/dL (6.4-8.2)
--- NOTE | 2016-11-01 07:59 | NUR ---
RN CLOSING NOTE PT REMAINS IN NO ACUTE DISTRESS IN BED. PT DID NOT HAVE ANY SIGNIFICANT CHANGE IN CONDITION DURING SHIFT. WILL ENDORSE CARE TO AM RN FOR CONTINUITY OF CARE. ALL NEEDS MET ALL ORDERS CARRIED OUT.
--- NOTE | 2016-11-01 08:00 | NUR ---
MS RN NOTES PATIENT IN BED RESTING NO SOB OR ACUTE DISTRESS NOTED. DENIES ANY PAIN OR DISCOMFORT. BED IN LOW LOCKED POSITION. CALL LIGHT WITHIN REACH. WILL CONTINUE TO MONITOR.
[2016-11-01 08:25] LABS: CALCIUM, SERUM 13.7 mg/dL (8.5-10.1)
[2016-11-01] MEDS: AZITHROMYCIN 250 MG TABLET PO SCH (08:56)
[2016-11-01] MEDS: ISONIAZID (300 MG) 300 MG TABLET PO SCH (08:56)
[2016-11-01] MEDS: ETHAMBUTOL HCL (400 MG) 400 MG TABLET PO SCH (08:56)
[2016-11-01] MEDS: PANTOPRAZOLE 40 MG TABLET.DR PO SCH (08:56)
[2016-11-01] MEDS: PYRIDOXINE HCL 50 MG TABLET PO SCH (08:57)
[2016-11-01] MEDS: LEFLUNOMIDE 10 MG TABLET PO SCH (08:57)
[2016-11-01] MEDS: SITAGLIPTIN PHOSPHATE 50 MG TABLET PO SCH (08:57)
[2016-11-01] MEDS: PAROXETINE HCL 10 MG TABLET PO SCH (08:57)
[2016-11-01] MEDS ORDERED: PYRAZINAMIDE 500 MG TABLET PO SCH (09:00)
[2016-11-01] MEDS ORDERED: PYRAZINAMIDE 500 MG TABLET PO ONE (09:00)
[2016-11-01] MEDS: GABAPENTIN 300 MG CAPSULE PO SCH (09:01)
[2016-11-01] MEDS: RIFABUTIN 150 MG CAPSULE PO SCH (09:02)
--- NOTE | 2016-11-01 09:40 | NUR ---
MS RN NOTES CALL RECEIVED FROM LAB WITH CRITICAL RESULTS OF CALCIUM 13.7 DE. [place] MADE AWARE ORDERS NOTED AND CARRIED OUT.
[2016-11-01] MEDS ORDERED: PAMIDRONATE 90 MG in IV NS 0.9% 500 ML IV ONE ×4 (12:00)
[2016-11-01] MEDS ORDERED: IV SET PRIMARY PUMP SET 1 EA INFUS.SET MC ONE (12:15)
[2016-11-01] MEDS ORDERED: SECONDARY IV SET 1 EA INFUS.SET MC ONE (12:21)
[2016-11-01] MEDS: GABAPENTIN 100 MG CAPSULE PO SCH ×3 (12:28→21:52)
[2016-11-01] MEDS: FUROSEMIDE 40 MG/4 ML VIAL IV SCH (12:28)
[2016-11-01] MEDS: Potassium Chloride 10 MEQ in IV NS 0.9% 1,000 ML IV PRN (12:28)
--- NOTE | 2016-11-01 14:00 | NUR ---
MS RN NOTES PATIENT SEEN AND EVALUATED BY BJ BAILEY. ORDERS NOTED AND CARRIED OUT.
[2016-11-01] MEDS ORDERED: DEXTROSE 50%-WATER 50 ML DISP.SYRIN IV PRN (14:30)
[2016-11-01 16:00] VITALS: BP 130/77
[2016-11-01] MEDS: BLOOD SUGAR DIAGNOSTIC 1 EACH STRIP IN SCH ×2 (17:15→21:52)
[2016-11-01] MEDS: ATORVASTATIN 40 MG TABLET PO SCH (17:15)
[2016-11-01] MEDS: INSULIN REGULAR, HUMAN 100 UNIT/ML 3 ML VIAL SQ PRN (17:17)
--- NOTE | 2016-11-01 18:43 | NUR ---
MS RN NOTES PATIENT IN BED RESTING NO SOB OR ACUTE DISTRESS NOTED. ALL DUE MEDICATIONS PROVIDED. ALL NEED MET. WILL ENDORSE TO PM SHIFT BUTCH.
--- NOTE | 2016-11-01 19:20 | NUR ---
RN INITIAL NOTE RECEIVED PT IN NO ACUTE DISTRESS IN BED. PT IS A/O 3 AND ABLE TO MAKE NEEDS KNOWN. PT IS CURRENTLY ON ISOLATION FOR R/O TB. PT IS ON RA AND TOLERATING WELL WITH O2 SAT @ 99%. PT NO C/O ANY SOB, DIFFICULTY BREATHING OR PAIN AT THIS TIME. PT HAS LAC 18 G THAT IS CLEAN DRY INTACT AND PATENT WITH KNS @ 110ML/HR. BED IN LOW LOCK POSITION WITH RAILS UP X 2. CALL LIGHT WITHIN REACH AND ALL SAFETY MEASURES ENSURED AND CARRIED OUT. WILL CONTINUE TO MONITOR FOR ANY CHANGES IN CONDITION.
[2016-11-01 20:00] VITALS: BP 112/73
[2016-11-01] MEDS: QUETIAPINE FUMARATE 25 MG TABLET PO SCH (21:52)
[2016-11-01] MEDS: ZOLPIDEM TARTRATE 5 MG TABLET PO PRN (21:53)
[2016-11-02 04:00] VITALS: BP_SYST 112; BP_DIAS 73; BP_DIAS 75
[2016-11-02] MEDS: PANTOPRAZOLE 40 MG TABLET.DR PO SCH (06:45)
[2016-11-02] MEDS: BLOOD SUGAR DIAGNOSTIC 1 EACH STRIP IN SCH ×4 (06:45→22:01)
--- NOTE | 2016-11-02 06:50 | NUR ---
RN CLOSING NOTE PT REMAINS IN NO ACUTE DISTRESS IN BED. PT DID NOT HAVE ANY SIGNIFICANT CHANGE IN CONDITION DURING SHIFT. ALL NEEDS MET ALL ORDERS CARRIED OUT. ALL SAFETY MEASURES ENSURED AND CARRIED OUT. WILL ENDORSE TO AM RN FOR CONTINUITY OF CARE.
[2016-11-02 06:54] LABS: BASOPHILS # (AUTO) 0.1 /CMM (0.0-0.2); BASOPHILS % (AUTO) 0.7 % (0.0-2.0); EOSINOPHILS # (AUTO) 1.6 /CMM (0.0-0.7); HEMATOCRIT 35 % (39-51); HEMOGLOBIN 11.4 g/dL (13.5-17.5); LYMPHOCYTES # (AUTO) 3.1 /CMM (0.8-4.8); LYMPHOCYTES % (AUTO) 21.9 % (20.0-44.0); MEAN CORPUSCULAR HEMOGLOBIN 26 PG (26.0-33.0); MEAN CORPUSCULAR HGB CONC 32 g/dl (31.0-36.0); MEAN CORPUSCULAR VOLUME 82 fL (80-96); MONOCYTES # (AUTO) 1.9 /CMM (0.1-1.30); MONOCYTES % (AUTO) 13.5 % (2.0-12.0); NEUTROPHILS # (AUTO) 7.5 /CMM (1.8-8.9); NEUTROPHILS % (AUTO) 52.9 % (43.0-81.0); PLATELET COUNT (AUTO) 361 /CMM (150-450); RDW COEFFICIENT OF VARIATION 15.9 (11.5-15.0); RED BLOOD CELL COUNT(AUTO) 4.32 MIL/uL (4.5-6.0); WHITE BLOOD COUNT (AUTO) 14.1 K/uL (4.3-11.0)
[2016-11-02 07:12] LABS: ALBUMIN 3.2 g/dL (3.4-5.0); BILIRUBIN,TOTAL 0.4 mg/dL (0.2-1.0); CREATININE 2.8 mg/dL (0.6-1.3); FERRITIN 249 ng/mL (8-388); MAGNESIUM 2.2 mg/dL (1.8-2.4); PHOSPHORUS 4.8 mg/dL (2.5-4.9); POTASSIUM 4.1 mmol/L (3.5-5.1); TOTAL PROTEIN, SERUM 8.1 g/dL (6.4-8.2)
[2016-11-02 07:43] LABS: LACTIC ACID 2.9 mmol/L (0.4-2.0)
[2016-11-02 08:00] VITALS: BP 106/70
[2016-11-02 08:37] LABS: BILIRUBIN,DIRECT 0.2 mg/dL (0.0-0.2)
[2016-11-02 08:44] LABS: LACTIC ACID REFLEX 1.8 mmol/L (0.4-1.9)
[2016-11-02 08:51] LABS: IRON, SERUM 36 ug/dl (50-175); TOTAL IRON BINDING CAPACITY 245 ug/dl (250-450)
[2016-11-02] MEDS ORDERED: LIDOCAINE 1% INJ 50 ML MDV IJ ONE (09:00)
[2016-11-02] MEDS ORDERED: PYRAZINAMIDE 500 MG TABLET PO SCH (09:00)
[2016-11-02] MEDS: PYRIDOXINE HCL 50 MG TABLET PO SCH (09:17)
[2016-11-02] MEDS: AZITHROMYCIN 250 MG TABLET PO SCH (09:18)
[2016-11-02] MEDS: PAROXETINE HCL 10 MG TABLET PO SCH (09:20)
[2016-11-02] MEDS: ISONIAZID (300 MG) 300 MG TABLET PO SCH (09:20)
[2016-11-02] MEDS: LEFLUNOMIDE 10 MG TABLET PO SCH (09:20)
[2016-11-02] MEDS: ETHAMBUTOL HCL (400 MG) 400 MG TABLET PO SCH (09:20)
[2016-11-02] MEDS: SITAGLIPTIN PHOSPHATE 50 MG TABLET PO SCH (09:21)
[2016-11-02] MEDS: RIFABUTIN 150 MG CAPSULE PO SCH (09:21)
[2016-11-02] MEDS: FUROSEMIDE 40 MG/4 ML VIAL IV SCH (09:22)
[2016-11-02] MEDS: GABAPENTIN 100 MG CAPSULE PO SCH ×4 (09:26→21:54)
[2016-11-02] MEDS: Potassium Chloride 10 MEQ in IV NS 0.9% 1,000 ML IV PRN (10:39)
[2016-11-02] MEDS: INSULIN REGULAR, HUMAN 100 UNIT/ML 3 ML VIAL SQ PRN ×3 (12:44→22:02)
[2016-11-02 16:00] VITALS: BP 119/80
[2016-11-02] MEDS: ATORVASTATIN 40 MG TABLET PO SCH (17:50)
--- NOTE | 2016-11-02 19:00 | NUR ---
RN CLOSING NOTES PT REMAINED STABLE, ISOLATION PRECAUTION OBSERVED AT ALL TIMES, BONE MARROW BIOPSY DONE AT BEDSIDE BY DR LE, TOLERATED WELL, ALL MEDS GIVEN AND NEEDS MET, SAFETY MAINTAINED, WILL ENDORSE TO MARKETING PLANNING MANAGER NURSE.
--- NOTE | 2016-11-02 19:40 | NUR ---
RN NOTES RECEIVED PT AWAKE ON BED IN ISOLATION ROOM FOR POSSIBLE /R/O TB. AOX 3 ABLE TO MAKE KNOWN NEEDS AFEBRILE. SATING WELL IN ROOM AIR. AMBULATORY . CONTINENT IN B&b WITH IV SITE ON LAC G 18 INTACT AND PATENT. NOT SHOWING ANY PRODUCTIVE COUGH DENIES ANY FEELING OF WEAKNESSES. KEPT PT CLEAN AND COMFORTABLE I N BED. CALL LIGHT KEPT WITHIN EASY REACH. WILL CONTINUE TO MONITOR.
[2016-11-02 20:00] VITALS: BP 125/80
[2016-11-02] MEDS: QUETIAPINE FUMARATE 25 MG TABLET PO SCH (21:56)
[2016-11-02] MEDS: ZOLPIDEM TARTRATE 5 MG TABLET PO PRN (22:09)
[2016-11-03] MEDS: Potassium Chloride 10 MEQ in IV NS 0.9% 1,000 ML IV PRN (01:59)
[2016-11-03 04:00] VITALS: BP 116/73
[2016-11-03] MEDS: PANTOPRAZOLE 40 MG TABLET.DR PO SCH (06:56)
[2016-11-03] MEDS: INSULIN REGULAR, HUMAN 100 UNIT/ML 3 ML VIAL SQ PRN ×4 (06:59→21:15)
[2016-11-03] MEDS: BLOOD SUGAR DIAGNOSTIC 1 EACH STRIP IN SCH ×4 (06:59→21:21)
[2016-11-03 08:00] VITALS: BP 128/70
[2016-11-03 08:09] LABS: IMMUNOGLOBULIN A, SERUM 605 mg/dL (90-386); IMMUNOGLOBULIN G, SERUM 1518 mg/dL (700-1600); IMMUNOGLOBULIN M, SERUM 68 mg/dL (20-172)
[2016-11-03] MEDS: RIFABUTIN 150 MG CAPSULE PO SCH (08:39)
[2016-11-03] MEDS: LEFLUNOMIDE 10 MG TABLET PO SCH (08:40)
[2016-11-03] MEDS: FERROUS SULFATE (325 MG) 325 MG/TAB TABLET PO SCH ×2 (08:40→17:58)
[2016-11-03] MEDS: PAROXETINE HCL 10 MG TABLET PO SCH (08:40)
[2016-11-03] MEDS: AZITHROMYCIN 250 MG TABLET PO SCH (08:40)
[2016-11-03] MEDS: ISONIAZID (300 MG) 300 MG TABLET PO SCH (08:40)
[2016-11-03] MEDS: GABAPENTIN 100 MG CAPSULE PO SCH ×4 (08:41→21:13)
[2016-11-03] MEDS: PYRIDOXINE HCL 50 MG TABLET PO SCH (08:41)
[2016-11-03] MEDS: ETHAMBUTOL HCL (400 MG) 400 MG TABLET PO SCH (08:42)
[2016-11-03] MEDS: SITAGLIPTIN PHOSPHATE 50 MG TABLET PO SCH (08:43)
[2016-11-03 09:00] VITALS: BP 128/70
[2016-11-03] MEDS ORDERED: FUROSEMIDE 40 MG/4 ML VIAL IV SCH (09:00)
[2016-11-03 09:43] LABS: BASOPHILS # (AUTO) 0.1 /CMM (0.0-0.2); BASOPHILS % (AUTO) 0.6 % (0.0-2.0); EOSINOPHILS # (AUTO) 1.3 /CMM (0.0-0.7); EOSINOPHILS % (AUTO) 9.7 % (0.0-6.0); HEMATOCRIT 34 % (39-51); HEMOGLOBIN 10.8 g/dL (13.5-17.5); LYMPHOCYTES # (AUTO) 2.2 /CMM (0.8-4.8); LYMPHOCYTES % (AUTO) 16.1 % (20.0-44.0); MEAN CORPUSCULAR HEMOGLOBIN 26 PG (26.0-33.0); MEAN CORPUSCULAR HGB CONC 32 g/dl (31.0-36.0); MEAN CORPUSCULAR VOLUME 82 fL (80-96); MONOCYTES # (AUTO) 1.5 /CMM (0.1-1.30); MONOCYTES % (AUTO) 10.9 % (2.0-12.0); NEUTROPHILS # (AUTO) 8.7 /CMM (1.8-8.9); NEUTROPHILS % (AUTO) 62.7 % (43.0-81.0); PLATELET COUNT (AUTO) 352 /CMM (150-450); RDW COEFFICIENT OF VARIATION 15.8 (11.5-15.0); RED BLOOD CELL COUNT(AUTO) 4.18 MIL/uL (4.5-6.0); WHITE BLOOD COUNT (AUTO) 13.8 K/uL (4.3-11.0)
[2016-11-03 10:02] LABS: ALBUMIN 3.1 g/dL (3.4-5.0); BILIRUBIN,TOTAL 0.4 mg/dL (0.2-1.0); CALCIUM, SERUM 12.8 mg/dL (8.5-10.1); CREATININE 2.8 mg/dL (0.6-1.3); PHOSPHORUS 5.1 mg/dL (2.5-4.9); POTASSIUM 3.9 mmol/L (3.5-5.1); TOTAL PROTEIN, SERUM 7.7 g/dL (6.4-8.2)
[2016-11-03 16:00] VITALS: BP 130/70
[2016-11-03 16:23] LABS: APPEARANCE,URINE SL CLOUDY (CLEAR); BILIRUBIN,URINE NEGATIVE (NEGATIVE); BLOOD, URINE TRACE-INTA Ery/uL (NEGATIVE); COLOR,URINE YELLOW (YELLOW); KETONES,URINE NEGATIVE (NEGATIVE); LEUKOCYTE ESTERASE ,URINE NEGATIVE (NEGATIVE); NITRITE, URINE NEGATIVE (NEGATIVE); PROTEIN,URINE NEGATIVE (NEGATIVE); UGLUCOSE 3+ mg/dL (NEGATIVE); UROBILINOGEN,URINE 0.2 EU/dL (0.2)
[2016-11-03 16:27] LABS: ADD URINE CULTURE NO; BACTERIA,URINE None seen /HPF (None Seen); RBC,URINE 0-2 /HPF (0-2); SQUAMOUS EPITHELIAL CELL,UR Rare /HPF (None Seen); WBC,URINE 0-2 /HPF (0-3)
[2016-11-03 16:43] LABS: URINE TOTAL PROTEIN 22.1 mg/dL (0-11.9)
[2016-11-03] MEDS: ATORVASTATIN 40 MG TABLET PO SCH (17:58)
[2016-11-03] MEDS: RIFAMPIN 300 MG CAPSULE PO SCH (18:09)
[2016-11-03 18:18] LABS: EOSINOPHIL,URINE RARE
--- NOTE | 2016-11-03 19:34 | NUR ---
RN NOTES PT AWAKE WHILE WATCHING TV ON BED. AFEBRILE DENIES PAIN. AOX 3 ABLE TO MAKE KNOWN NEEDS. IV SITE ON LAC G 18 RUNNING WITH IVF INTACT AND PATENT TOLERATED WELL. S/E BY DR. LE WITH NNO UPDATED MD ABOUT PT. KEPT PT CLEAN AND DRY. CALL LIGHT KEPT WITHIN EASY REACH. WILL CONTINUE TO MONITOR.
[2016-11-03 20:00] VITALS: BP 106/67
[2016-11-03] MEDS: QUETIAPINE FUMARATE 25 MG TABLET PO SCH (21:13)
[2016-11-03] MEDS: ZOLPIDEM TARTRATE 5 MG TABLET PO PRN (21:14)
[2016-11-03] MEDS ORDERED: INSULIN DETEMIR 100 UNIT/ML CARTRIDGE SQ SCH (22:00)
[2016-11-04 04:00] VITALS: BP 113/71
[2016-11-04 06:12] LABS: COMPLEMENT C3, SERUM 154 mg/dL (82-167); COMPLEMENT C4, SERUM 33 mg/dL (14-44)
[2016-11-04] MEDS: HYDROCODONE/APAP 5/325MG 1 EACH TABLET PO PRN ×2 (06:32→19:54)
[2016-11-04] MEDS: BLOOD SUGAR DIAGNOSTIC 1 EACH STRIP IN SCH ×2 (06:33→12:25)
[2016-11-04] MEDS: PANTOPRAZOLE 40 MG TABLET.DR PO SCH (06:33)
[2016-11-04] MEDS: INSULIN REGULAR, HUMAN 100 UNIT/ML 3 ML VIAL SQ PRN ×2 (06:34→12:35)
[2016-11-04 06:41] LABS: BASOPHILS # (AUTO) 0.1 /CMM (0.0-0.2); BASOPHILS % (AUTO) 0.5 % (0.0-2.0); EOSINOPHILS # (AUTO) 1.6 /CMM (0.0-0.7); EOSINOPHILS % (AUTO) 11.2 % (0.0-6.0); HEMATOCRIT 36 % (39-51); HEMOGLOBIN 11.7 g/dL (13.5-17.5); LYMPHOCYTES # (AUTO) 3.1 /CMM (0.8-4.8); LYMPHOCYTES % (AUTO) 21.2 % (20.0-44.0); MEAN CORPUSCULAR HEMOGLOBIN 26 PG (26.0-33.0); MEAN CORPUSCULAR HGB CONC 33 g/dl (31.0-36.0); MEAN CORPUSCULAR VOLUME 81 fL (80-96); MONOCYTES # (AUTO) 2.3 /CMM (0.1-1.30); MONOCYTES % (AUTO) 15.8 % (2.0-12.0); NEUTROPHILS # (AUTO) 7.5 /CMM (1.8-8.9); NEUTROPHILS % (AUTO) 51.3 % (43.0-81.0); PLATELET COUNT (AUTO) 387 /CMM (150-450); RDW COEFFICIENT OF VARIATION 16.2 (11.5-15.0); RED BLOOD CELL COUNT(AUTO) 4.45 MIL/uL (4.5-6.0); WHITE BLOOD COUNT (AUTO) 14.7 K/uL (4.3-11.0)
--- NOTE | 2016-11-04 07:06 | NUR ---
RN NOTES ASLEEP WELL WITHOUT ANY SIGNIFICANT BUTCH NOTED. AFEBRILE. VS MAINTAINED WNL. KEPT PT ON DROPLET ISOLATION SECONDARY TO R/O TB. NO NIGHT SWEATING, NO PRODUCTIVE COUGH SHOWS. AFEBRILE. PT AMBULATE WITH WALKER. CONTINENT IN BOWEL AND BLADDER. ALL NEEDS ATTENDED. PT REFUSED INSULIN AT THIS TIME WILL ENDORSED TO OFFERED IT AGAIN RISK AND BENEFITS EXPLAINED INEFFECTIVE.CONTINUITY OF CARE TO AM NURSE.
[2016-11-04 07:09] LABS: ALBUMIN 3.4 g/dL (3.4-5.0); CALCIUM, SERUM 12.7 mg/dL (8.5-10.1); CREATININE 2.7 mg/dL (0.6-1.3); MAGNESIUM 2.2 mg/dL (1.8-2.4); PHOSPHORUS 4.3 mg/dL (2.5-4.9); TOTAL PROTEIN, SERUM 8.4 g/dL (6.4-8.2)
[2016-11-04 07:25] LABS: *SPE ALBUMIN 3.5 g/dL (2.9-4.4); *SPE ALPHA-1-GLOBULIN 0.2 g/dL (0.0-0.4); *SPE ALPHA-2-GLOBULIN 0.8 g/dL (0.4-1.0); *SPE BETA GLOBULIN 1.2 g/dL (0.7-1.3); *SPE GLOBULIN, TOTAL 3.6 g/dL (2.2-3.9); *SPE M-SPIKE Not Observed g/dL (Not Observed); *SPE PROTEIN TOTAL 7.1 g/dL (6.0-8.5); *SPEGAMMA GLOBULIN 1.4 g/dL (0.4-1.8)
[2016-11-04 08:00] VITALS: BP_SYST 101; BP_SYST 113; BP_DIAS 67; BP_DIAS 74
[2016-11-04 08:59] LABS: EOSINOPHILS % (MANUAL) 12 % (0-4); LYMPHOCYTES % (MANUAL) 25 % (16-48); MONOCYTES % (MANUAL) 18 % (0-11.0); NEUTROPHILS % (MANUAL) 45 (42-76)
--- NOTE | 2016-11-04 09:00 | NUR ---
MS RN NOTE Pt resting in bed. AOx3. No s/s distress, denies SOB. VSS. Isolation to rule out TB. All needs met. Will cont to monitor.
[2016-11-04 09:01] LABS: ANISOCYTOSIS 1+; HYPOCHROMASIA 1+; PLATELET ESTIMATE INCREASED; TARGET CELLS 1+
[2016-11-04 09:21] LABS: HEPATITIS A AB, IgM Negative (Negative); HEPATITIS B CORE AB, IgM Negative (Negative); HEPATITIS B CORE AB, TOTAL Negative (Negative); HEPATITIS B SURFACE AB Non Reactive (.); HEPATITIS C VIRUS AB 0.1 s/co ratio (0.0-0.9)
[2016-11-04] MEDS: FERROUS SULFATE (325 MG) 325 MG/TAB TABLET PO SCH ×2 (09:25→16:16)
[2016-11-04] MEDS: FUROSEMIDE 40 MG TABLET PO SCH (09:25)
[2016-11-04] MEDS: RIFAMPIN 300 MG CAPSULE PO SCH (09:26)
[2016-11-04] MEDS: PAROXETINE HCL 10 MG TABLET PO SCH (09:26)
[2016-11-04] MEDS: PYRIDOXINE HCL 50 MG TABLET PO SCH (09:31)
[2016-11-04] MEDS: ETHAMBUTOL HCL (400 MG) 400 MG TABLET PO SCH (09:32)
[2016-11-04] MEDS: PYRAZINAMIDE 500 MG TABLET PO SCH (09:32)
[2016-11-04] MEDS: GABAPENTIN 100 MG CAPSULE PO SCH ×4 (09:32→21:10)
[2016-11-04] MEDS: ISONIAZID (300 MG) 300 MG TABLET PO SCH (09:33)
[2016-11-04] MEDS: LEFLUNOMIDE 10 MG TABLET PO SCH (09:33)
[2016-11-04] MEDS ORDERED: POTASSIUM CHLORIDE 20 MEQ TAB.PRT.SR PO ONE (10:00)
[2016-11-04] MEDS ORDERED: IV SET PRIMARY PUMP SET 1 EA INFUS.SET MC ONE (11:23)
[2016-11-04 12:18] LABS: *ANCANTIMYELOPEROXIDASE (MPO) <9.0 U/mL (0.0-9.0); *ANCANTIPROTEINASE 3 (PR-3) AB <3.5 U/mL (0.0-3.5)
--- NOTE | 2016-11-04 12:31 | NUR ---
tried 3x peripheral iv unsuccessful,per pt. he had iv inserted before w/ special machine,screaming on reinsertion of iv.Olman wheel and pinion inspector notified ordered midline,nsg. sup notified wanted icu nurses to try again,icu nurse charge nurse notified.will ff. up.
[2016-11-04] MEDS ORDERED: SODIUM CL FOR INHALATION 3% 15 ML VIAL.NEB IH ONE (12:45)
[2016-11-04 13:25] LABS: *ANCA ATYPICAL p-ANCA <1:20 titer (Neg:<1:20); *ANCA CYTOPLASMIC (C-ANCA) <1:20 titer (Neg:<1:20); *ANCA PERINUCLEAR (P-ANCA) <1:20 titer (Neg:<1:20)
[2016-11-04] MEDS ORDERED: DEXTROSE 50%-WATER 50 ML DISP.SYRIN IV PRN (13:30)
[2016-11-04] MEDS: Potassium Chloride 10 MEQ in IV NS 0.9% 1,000 ML IV PRN (14:19)
[2016-11-04 16:00] VITALS: BP 117/73
[2016-11-04] MEDS: BLOOD SUGAR DIAGNOSTIC 1 EACH STRIP VI SCH ×2 (17:06→21:10)
[2016-11-04] MEDS: ATORVASTATIN 40 MG TABLET PO SCH (17:06)
--- NOTE | 2016-11-04 17:46 | NUR ---
MS RN NOTE PHOTOENGRAVER able to put IV in pt's right forearm #18g. KCl running at 100ml/hr. BG 134 at 1730, pt refused insulin. Urine orange colored, HEEL COVERER MACHINE OPERATOR aware. All needs met, will endorse to next RN.
[2016-11-04 20:00] VITALS: BP 129/78
[2016-11-04] MEDS: QUETIAPINE FUMARATE 25 MG TABLET PO SCH (21:10)
[2016-11-04] MEDS: ZOLPIDEM TARTRATE 5 MG TABLET PO PRN (21:12)
[2016-11-04] MEDS: INSULIN DETEMIR 100 UNIT/ML CARTRIDGE SQ SCH (21:16)
[2016-11-04] MEDS: *INSULIN REGULAR(HUMULIN R)HUM 100 UNIT/ML VIAL SQ PRN (21:17)
[2016-11-05 04:00] VITALS: BP 105/62
[2016-11-05] MEDS: HYDROCODONE/APAP 5/325MG 1 EACH TABLET PO PRN ×3 (04:01→19:51)
[2016-11-05 04:32] LABS: HEPATITIS Be AG Positive (Negative)
[2016-11-05 04:41] VITALS: BP 105/62
[2016-11-05 06:27] LABS: BASOPHILS # (AUTO) 0.1 /CMM (0.0-0.2); BASOPHILS % (AUTO) 0.8 % (0.0-2.0); EOSINOPHILS # (AUTO) 1.4 /CMM (0.0-0.7); EOSINOPHILS % (AUTO) 10.4 % (0.0-6.0); HEMATOCRIT 35 % (39-51); HEMOGLOBIN 11.1 g/dL (13.5-17.5); LYMPHOCYTES # (AUTO) 2.6 /CMM (0.8-4.8); LYMPHOCYTES % (AUTO) 19.2 % (20.0-44.0); MEAN CORPUSCULAR HEMOGLOBIN 26 PG (26.0-33.0); MEAN CORPUSCULAR HGB CONC 32 g/dl (31.0-36.0); MEAN CORPUSCULAR VOLUME 81 fL (80-96); MONOCYTES # (AUTO) 1.9 /CMM (0.1-1.30); MONOCYTES % (AUTO) 14.3 % (2.0-12.0); NEUTROPHILS # (AUTO) 7.4 /CMM (1.8-8.9); NEUTROPHILS % (AUTO) 55.3 % (43.0-81.0); PLATELET COUNT (AUTO) 273 /CMM (150-450); RDW COEFFICIENT OF VARIATION 15.9 (11.5-15.0); RED BLOOD CELL COUNT(AUTO) 4.28 MIL/uL (4.5-6.0); WHITE BLOOD COUNT (AUTO) 13.4 K/uL (4.3-11.0)
[2016-11-05] MEDS: BLOOD SUGAR DIAGNOSTIC 1 EACH STRIP VI SCH ×4 (06:36→22:08)
[2016-11-05 07:05] LABS: ALBUMIN 3.2 g/dL (3.4-5.0); CALCIUM, SERUM 11.7 mg/dL (8.5-10.1); CREATININE 2.4 mg/dL (0.6-1.3); TOTAL PROTEIN, SERUM 7.8 g/dL (6.4-8.2)
--- NOTE | 2016-11-05 07:30 | NUR ---
initial notes patient in bed, a+o x3. denies pain at this time. breathing wnl on room air. lung sounds clear. on isolation precautions for r/o TB. rfa iv patent, dressing cdi with naca with 10meq kcl @ 100ml/hr, bag with 200 ml remaining, asked pharmacy to bring another. spoke to RT about induced sputum cx. discussed plan of care with patient and pathophysiology of TB. call light in reach.
[2016-11-05 08:00] VITALS: BP 114/71
[2016-11-05] MEDS ORDERED: SODIUM CL FOR INHALATION 3% 15 ML VIAL.NEB IH ONE (08:30)
[2016-11-05] MEDS: RIFAMPIN 300 MG CAPSULE PO SCH (09:14)
[2016-11-05] MEDS: LEFLUNOMIDE 10 MG TABLET PO SCH (09:14)
[2016-11-05] MEDS: GABAPENTIN 100 MG CAPSULE PO SCH ×4 (09:14→21:59)
[2016-11-05] MEDS: ISONIAZID (300 MG) 300 MG TABLET PO SCH (09:15)
[2016-11-05] MEDS: FERROUS SULFATE (325 MG) 325 MG/TAB TABLET PO SCH ×2 (09:15→17:15)
[2016-11-05] MEDS: PANTOPRAZOLE 40 MG TABLET.DR PO SCH (09:15)
[2016-11-05] MEDS: PAROXETINE HCL 10 MG TABLET PO SCH (09:15)
[2016-11-05] MEDS: PYRIDOXINE HCL 50 MG TABLET PO SCH (09:15)
[2016-11-05] MEDS: MEGESTROL ACETATE SUSP 400 MG/10 ML UDC PO SCH (09:15)
[2016-11-05] MEDS: Potassium Chloride 10 MEQ in IV NS 0.9% 1,000 ML IV PRN (11:01)
[2016-11-05] MEDS: FUROSEMIDE 40 MG TABLET PO SCH (11:03)
[2016-11-05] MEDS: INSULIN REGULAR, HUMAN 100 UNIT/ML 3 ML VIAL SQ PRN (11:06)
[2016-11-05] MEDS ORDERED: POTASSIUM CL. PREMIX PERIPHER. 50 ML IV SCH (11:30)
--- NOTE | 2016-11-05 11:42 | NUR ---
OBTAINED SECOND SPUTUM SAMPLE PER LAB'S REQUEST DUE TO INSUFFICIENT SPUTUM AMOUNT. SAMPLE OBTAINED AND GIVEN TO LAB. CHARGE NURSE (SOON) NOTIFIED.
[2016-11-05] MEDS ORDERED: SECONDARY IV SET 1 EA INFUS.SET MC ONE (11:51)
--- NOTE | 2016-11-05 13:10 | NUR ---
rn notes patient complaining of burning @ iv site from potassium infusion. stopped 1st bag of potassium with 25 ml remaining. salazar ordered d/c iv kcl and give 40 mew kcl 1 time. cont' iv fluid ns with 10meq kcl. salazar gave verbal order for midline insertion. notified charge nurse.
[2016-11-05] MEDS ORDERED: POTASSIUM CHLORIDE 20 MEQ TAB.PRT.SR PO ONE (13:30)
[2016-11-05 16:00] VITALS: BP 146/75
[2016-11-05] MEDS: ATORVASTATIN 40 MG TABLET PO SCH (17:15)
--- NOTE | 2016-11-05 19:30 | NUR ---
initial notes patient in bed, a+o x3. denies pain at this time. breathing wnl on room air. lung sounds clear. on isolation precautions for r/o TB. rfa iv patent, dressing cdi with naca. Bed locked and in lowest position. Call light within reach. Will continue to monitor.
--- NOTE | 2016-11-05 19:30 | NUR ---
CLOSING NOTES LEFT PATIENT IN STABLE CONDITION. NO ACUTE CHANGES. HAIR ASSISTANT WAS INFORMED PATIENT REQUESTED SKIN TX FOR FACE. NO NEW ORDERS GIVEN AT THIS TIME- COPNT' TO MONITOR. ENDORSED TO NIGHT NURSE. MIDLINE INSERTION SUCCESSFUL. IV ACCESS ATTEMPTED BY MULTIPLE NURSES. CALL LIGHT IN REACH.
[2016-11-05 20:00] VITALS: BP 110/74
[2016-11-05] MEDS: QUETIAPINE FUMARATE 25 MG TABLET PO SCH (21:59)
[2016-11-05] MEDS: INSULIN DETEMIR 100 UNIT/ML CARTRIDGE SQ SCH (22:05)
[2016-11-05] MEDS: *INSULIN REGULAR(HUMULIN R)HUM 100 UNIT/ML VIAL SQ PRN (22:06)
[2016-11-05] MEDS: ZOLPIDEM TARTRATE 5 MG TABLET PO PRN (22:16)
[2016-11-06] VITALS: BP 110/74
[2016-11-06 04:00] VITALS: BP 117/84
[2016-11-06] MEDS: Potassium Chloride 10 MEQ in IV NS 0.9% 1,000 ML IV PRN ×2 (05:24→16:49)
[2016-11-06] MEDS: BLOOD SUGAR DIAGNOSTIC 1 EACH STRIP VI SCH ×4 (05:25→21:43)
--- NOTE | 2016-11-06 05:38 | NUR ---
MS RN NOTE RT WILL NOT INDUCE SPUTUM CULTURE AT THIS TIME. PER, RT, THE ORDER IS FOR LATER IN THE DAY. WILL ENDORSE TO DAY SHIFT FOR BUTCH.
[2016-11-06 06:29] LABS: BASOPHILS # (AUTO) 0.2 /CMM (0.0-0.2); BASOPHILS % (AUTO) 1.8 % (0.0-2.0); EOSINOPHILS # (AUTO) 1.4 /CMM (0.0-0.7); HEMATOCRIT 34 % (39-51); LYMPHOCYTES # (AUTO) 3.1 /CMM (0.8-4.8); LYMPHOCYTES % (AUTO) 25.8 % (20.0-44.0); MEAN CORPUSCULAR HEMOGLOBIN 26 PG (26.0-33.0); MEAN CORPUSCULAR HGB CONC 32 g/dl (31.0-36.0); MEAN CORPUSCULAR VOLUME 80 fL (80-96); MONOCYTES # (AUTO) 1.8 /CMM (0.1-1.30); MONOCYTES % (AUTO) 15.1 % (2.0-12.0); NEUTROPHILS # (AUTO) 5.4 /CMM (1.8-8.9); NEUTROPHILS % (AUTO) 45.3 % (43.0-81.0); PLATELET COUNT (AUTO) 288 /CMM (150-450); RDW COEFFICIENT OF VARIATION 15.8 (11.5-15.0); RED BLOOD CELL COUNT(AUTO) 4.23 MIL/uL (4.5-6.0)
[2016-11-06 06:38] LABS: CALCIUM, SERUM 11.2 mg/dL (8.5-10.1); CREATININE 2.3 mg/dL (0.6-1.3); MAGNESIUM 1.9 mg/dL (1.8-2.4); PHOSPHORUS 3.3 mg/dL (2.5-4.9); POTASSIUM 3.1 mmol/L (3.5-5.1)
--- NOTE | 2016-11-06 07:30 | NUR ---
initial notes patient in bed, a+o x3. denies pain at this time. breathing wnl on room air. lung sounds clear. on isolation precautions for r/o TB. rfa iv patent, dressing cdi with nacl with 10meq kcl @ 100ml/hr, bag. spoke to RT about induced sputum cx. discussed plan of care. call light in reach.
[2016-11-06 08:00] VITALS: BP 102/77
[2016-11-06] MEDS ORDERED: SODIUM CL FOR INHALATION 3% 15 ML VIAL.NEB IH ONE ×2 (08:00→22:30)
[2016-11-06] MEDS: FERROUS SULFATE (325 MG) 325 MG/TAB TABLET PO SCH ×2 (08:25→16:51)
[2016-11-06] MEDS: RIFAMPIN 300 MG CAPSULE PO SCH (08:25)
[2016-11-06] MEDS: PAROXETINE HCL 10 MG TABLET PO SCH (08:25)
[2016-11-06] MEDS: MEGESTROL ACETATE SUSP 400 MG/10 ML UDC PO SCH (08:25)
[2016-11-06] MEDS: ETHAMBUTOL HCL (400 MG) 400 MG TABLET PO SCH (08:25)
[2016-11-06] MEDS: LEFLUNOMIDE 10 MG TABLET PO SCH (08:25)
[2016-11-06] MEDS: ISONIAZID (300 MG) 300 MG TABLET PO SCH (08:25)
[2016-11-06] MEDS: PANTOPRAZOLE 40 MG TABLET.DR PO SCH (08:26)
[2016-11-06] MEDS: GABAPENTIN 100 MG CAPSULE PO SCH ×4 (08:26→21:42)
[2016-11-06] MEDS: FUROSEMIDE 40 MG TABLET PO SCH (08:26)
[2016-11-06] MEDS: PYRIDOXINE HCL 50 MG TABLET PO SCH (08:26)
[2016-11-06] MEDS: PYRAZINAMIDE 500 MG TABLET PO SCH (08:26)
[2016-11-06] MEDS: HYDROCODONE/APAP 5/325MG 1 EACH TABLET PO PRN ×3 (11:19→21:43)
[2016-11-06] MEDS: INSULIN REGULAR, HUMAN 100 UNIT/ML 3 ML VIAL SQ PRN (11:25)
[2016-11-06] MEDS ORDERED: POTASSIUM CHLORIDE 20 MEQ TAB.PRT.SR PO SCH (13:00)
[2016-11-06 16:00] VITALS: BP 116/68
[2016-11-06 16:14] LABS: *PEU PROTEIN,TOTAL 7.4 mg/dL (Not Estab.); *PEUR ALBUMIN 11.8 % (.); *PEUR ALPHA-1-GLOBULIN 5.9 % (.); *PEUR GAMMA GLOBULIN 22.3 % (.)
[2016-11-06] MEDS: ATORVASTATIN 40 MG TABLET PO SCH (16:54)
--- NOTE | 2016-11-06 17:00 | NUR ---
pt refused insulin. BS 155
--- NOTE | 2016-11-06 17:18 | NUR ---
RN notes Lab said sputum cx not sufficient. per dr. Gillis and Olman Mackay, ok to re-order sputum and saline 3% for induction. informed both that patient is non-productive for sputum and sputum culture very challenging to acquire. they said ok, and keep trying as tolerated.
--- NOTE | 2016-11-06 19:14 | NUR ---
CLOSING NOTES LEFT PATIENT IN STABLE CONDITION. NO ACUTE CHANGES. LOC AND BREATHING WNL. INFORMED NIGHT NURSE OF SPUTUM CULTURE SITUATION. CALL LIGHT IN REACH.
--- NOTE | 2016-11-06 19:20 | NUR ---
RN INITIAL NOTES RECEIVED PATIENT IN BED, AWAKE AND ALERT X4. ABLE TO MAKE NEEDS KNOWN. ON ROOM AIR, RESPIRATION IS EVEN AND UNLABORED WITH NO DISTRESS. NO COUGHING EPISODES NOTED. INFORMED PATIENT OF THE REPEAT SPUTUM COLLECTION, PATIENT WILL COMPLY, RT INFORMED. PATIENT VERBALIZING MILD DISCOMFORT ON LOWER BACK, REPOSITIONED PATIENT AT THIS TIME, WITH HELP. FELISA MIDLINE INTACT AND PATENT, RUNNING WITH NS + 10mEq KCL AT 100CC/HR ORDERED. ENCOURAGED INCREASED PO INTAKE TOLERATED. NOTED WITH FACIAL REDNESS, WILL ADMINISTER TOP HYDROCORTISONE ORDERED. PATIENT'S NEEDS ANTICIPATED AND MET AT THIS TIME. SAFETY AND COMFORT ENSURED. BED IN LOW AND LOCKED POSITION. CALL LIGHT IN REACH. WILL MONITOR. STRICT DROPLET PRECAUTION OBSERVED.
[2016-11-06 20:00] VITALS: BP 118/66
[2016-11-06] MEDS: QUETIAPINE FUMARATE 25 MG TABLET PO SCH (21:42)
[2016-11-06] MEDS: *INSULIN REGULAR(HUMULIN R)HUM 100 UNIT/ML VIAL SQ PRN (21:48)
[2016-11-06] MEDS: INSULIN DETEMIR 100 UNIT/ML CARTRIDGE SQ SCH (21:49)
--- NOTE | 2016-11-06 21:56 | NUR ---
RN NOTES PATIENT'S BS NOTED TO BE 272. INSULIN GIVEN ORDERED. ALL HS MEDS GIVEN ORDERED. MEDICATED PATIENT WITH NORCO, PER PATIENT'S REQUEST FOR C/O 8/10 LOWER BACK PAIN. SAFETY AND COMFORT ENSURED. NEEDS ANTICIPATED AND MET. CALL LIGHT IN REACH.
[2016-11-06] MEDS: ZOLPIDEM TARTRATE 5 MG TABLET PO PRN (23:30)
--- NOTE | 2016-11-06 23:33 | NUR ---
RN NOTES SPUTUM INDUCTION DONE BY RT, NO SPUTUM PRODUCTION NOTED. AMBIEN GIVEN ORDERED PER PATIENT'S REQUEST. PATIENT'S SAFETY AND COMFORT ENSURED. NEEDS ANTICIPATED AND MET AT THIS TIME. CALL LIGHT IN REACH.
[2016-11-07] MEDS: Potassium Chloride 10 MEQ in IV NS 0.9% 1,000 ML IV PRN ×2 (03:22→16:25)
[2016-11-07] MEDS: HYDROCODONE/APAP 5/325MG 1 EACH TABLET PO PRN ×4 (03:25→21:07)
--- NOTE | 2016-11-07 03:45 | NUR ---
RN NOTES PATIENT AWAKE AT THIS TIME. PATIENT COMPLAINED OF LOWER BACK PAIN AND REQUESTED FOR PAIN MEDICATION. MEDICATED FOR PAIN PER PATIENT'S REQUEST. PATIENT ALSO STATED THAT HE DOES NOT FEEL GOOD AND HE IS FEELING DIZZY, LIGHTHEADED AND HE FEELS COLD AND CLAMMY. PATIENT'S BS CHECKED AND NOTED TO BE 56. D50 GIVEN PER PROTOCOL, SNACKS PROVIDED FOR THE PATIENT. WILL MONITOR.
[2016-11-07 04:00] VITALS: BP 116/69
--- NOTE | 2016-11-07 04:11 | NUR ---
RN NOTES PATIENT'S STATES THAT HE IS FEELING BETTER. PATIENT'S BS IS 274, POST D50 ADMINISTRATION. WILL MONITOR. SAFETY AND COMFORT ENSURED. CALL LIGHT IN REACH.
[2016-11-07] MEDS: PANTOPRAZOLE 40 MG TABLET.DR PO SCH (06:43)
[2016-11-07] MEDS: INSULIN REGULAR, HUMAN 100 UNIT/ML 3 ML VIAL SQ PRN (06:45)
[2016-11-07] MEDS: BLOOD SUGAR DIAGNOSTIC 1 EACH STRIP VI SCH ×4 (06:45→21:07)
[2016-11-07 06:48] LABS: CALCIUM, SERUM 11.1 mg/dL (8.5-10.1); CREATININE 2.1 mg/dL (0.6-1.3); POTASSIUM 3.2 mmol/L (3.5-5.1)
--- NOTE | 2016-11-07 06:49 | NUR ---
RN CLOSING NOTES PATIENT WITH NO DISTRESS AT THIS TIME. DENIES ANY PAIN AND DISCOMFORT. PATIENT WITH BS OF 151, PATIENT REFUSED INSULIN TO BE GIVEN. EXPLAINED RISKS AND BENEFITS X3, TO NO AVAIL. NEEDS ANTICIPATED AND MET. ALL DUE MEDS GIVEN ORDERED. IVF INFUSING WELL ORDERED ON PATIENT'S FELISA MIDLINE. SAFETY AND COMFOFRT ENSURED. BED IN LOW AND LOCKED POSITION. CALL LIGHT IN REACH. WILL ENDORSE ACCORDINGLY FOR CONTINUITY OF CARE.
--- NOTE | 2016-11-07 07:30 | NUR ---
initial notes patient in bed, a+o x3. states has 7/10 back pain. denies dizziness. breathing wnl on room air. lung sounds clear. on isolation precautions for r/o TB. FELISA midline iv patent, dressing cdi with nacl with 10meq kcl @ 100ml/hr, bag. noted still pending 3rd sputum cx. discussed plan of care. call light in reach.
[2016-11-07] MEDS: ISONIAZID (300 MG) 300 MG TABLET PO SCH (08:36)
[2016-11-07] MEDS: MEGESTROL ACETATE SUSP 400 MG/10 ML UDC PO SCH (08:36)
[2016-11-07] MEDS: PYRIDOXINE HCL 50 MG TABLET PO SCH (08:36)
[2016-11-07] MEDS: FERROUS SULFATE (325 MG) 325 MG/TAB TABLET PO SCH ×2 (08:37→16:26)
[2016-11-07] MEDS: GABAPENTIN 100 MG CAPSULE PO SCH ×4 (08:37→21:05)
[2016-11-07] MEDS: RIFAMPIN 300 MG CAPSULE PO SCH (08:37)
[2016-11-07] MEDS: PAROXETINE HCL 10 MG TABLET PO SCH (08:37)
[2016-11-07] MEDS: LEFLUNOMIDE 10 MG TABLET PO SCH (08:37)
[2016-11-07] MEDS: FUROSEMIDE 40 MG TABLET PO SCH (08:37)
[2016-11-07 08:50] VITALS: BP 131/80
--- NOTE | 2016-11-07 11:32 | NUR ---
RN notes Dr. Aparicio saw patient and said give 1 bolus of NS over 2 hours. After first hour (500ml) give Lasix IV push.
[2016-11-07] MEDS ORDERED: FUROSEMIDE 40 MG/4 ML VIAL IV ONE (11:40)
[2016-11-07] MEDS ORDERED: IV NS 0.9% 1,000 ML BAG IV ONE (11:40)
[2016-11-07] MEDS ORDERED: FUROSEMIDE 40 MG/4 ML VIAL IV SCH (11:40)
[2016-11-07] MEDS: HYDROCORTISONE 1% CREAM 28.35 GM TUBE TP PRN (11:44)
[2016-11-07] MEDS: *INSULIN REGULAR(HUMULIN R)HUM 100 UNIT/ML VIAL SQ PRN ×2 (11:47→21:14)
[2016-11-07] MEDS ORDERED: PAMIDRONATE 90 MG in IV NS 0.9% 500 ML IV ONE (14:00)
[2016-11-07] MEDS ORDERED: POTASSIUM CHLORIDE 20 MEQ POWDER PACKET PO ONE ×2 (14:00→16:00)
[2016-11-07 16:00] VITALS: BP 131/71
[2016-11-07] MEDS ORDERED: SECONDARY IV SET 1 EA INFUS.SET MC ONE (16:14)
[2016-11-07] MEDS: ATORVASTATIN 40 MG TABLET PO SCH (17:48)
[2016-11-07] MEDS ORDERED: SODIUM CL FOR INHALATION 3% 15 ML VIAL.NEB IH ONE (18:00)
--- NOTE | 2016-11-07 19:15 | NUR ---
RN INITIAL NOTES RECEIVED PATIENT IN BED, AWAKE AND ALERT, DENIES ANY PAIN AND DISCOMFORT AT THIS TIME. ON ROOM AIR WITH NO DISTRESS. IVF RUNNING ON PATIENT'S FELISA MIDLINE ORDERED. ON AIRBORNE PRECAUTIONS, STRICTLY OBSERVED. NEEDS ANTICIPATED AND MET. SAFETY AND COMFORT ENSURED. BED IN LOW AND LOCKED POSITION. CALL LIGHT IN REACH. WILL MONITOR.
--- NOTE | 2016-11-07 19:31 | NUR ---
CLOSING NOTES LEFT PATIENT IN STABLE CONDITION. BREATHING AND LOC WNL. PATIENT PRODUCED SMALL AMOUNT OF SPUTUM, DAY TIME RT, JAKE, ENDORSED TO NIGHT RT LEONA TO COMPLETE COLLECTION PROCESS S/P HYPERTONIC SOLUTION TX. I ENDORSED TO NIGHT NURSE TO FOLLOW UP. CALL LIGHT IN REACH
[2016-11-07 20:00] VITALS: BP 127/77
[2016-11-07] MEDS: QUETIAPINE FUMARATE 25 MG TABLET PO SCH (21:06)
[2016-11-07] MEDS: INSULIN DETEMIR 100 UNIT/ML CARTRIDGE SQ SCH (21:13)
[2016-11-07] MEDS: ZOLPIDEM TARTRATE 5 MG TABLET PO PRN (22:26)
--- NOTE | 2016-11-08 00:30 | NUR ---
RN NOTES PATIENT COMPLAINING OF NERVE PAIN ON BOTH LEGS. PER PATIENT, PAIN WAS UNRELIEVED BY NEURONTIN GIVEN AT 2100 ORDERED AND SCHEDULED. INFORMED AND REVIEWED MEDS WITH DR. BRICE, ORDER TO INCREASE NEURONTIN TO 200MG PO QID OBTAINED. ORDER NOTED AND CARRIED OUT. PATIENT MADE AWARE. WILL MEDICATE PATIENT WITH NORCO PRN FOR PAIN MANAGEMENT.
[2016-11-08 04:00] VITALS: BP 117/72
[2016-11-08] MEDS: Potassium Chloride 10 MEQ in IV NS 0.9% 1,000 ML IV PRN ×2 (04:24→22:29)
[2016-11-08] MEDS: HYDROCODONE/APAP 5/325MG 1 EACH TABLET PO PRN ×5 (04:25→22:17)
--- NOTE | 2016-11-08 06:34 | NUR ---
RN CLOSING NOTES PATIENT WITH NO ACUTE DISTRESS OBSERVED OVERNIGHT. ALL DUE MEDS GIVEN ORDERED. IVF INFUSING WELL ON PATIENT'S FELISA MIDLINE ORDERED. BS MONITORED CLOSELY, NO EPISODE OF HYPOGLYCEMIA NOTED. PATIENT'S NEEDS ANTICIPATED AND MET. SAFETY AND COMFORT ENSURED. BED IN LOW AND LOCKED POSITION. CALL LIGHT WITHIN REACH. WILL ENDORSE ACCORDINGLY FOR CONTINUITY OF CARE.
[2016-11-08] MEDS: BLOOD SUGAR DIAGNOSTIC 1 EACH STRIP VI SCH ×4 (06:51→22:24)
[2016-11-08] MEDS: PANTOPRAZOLE 40 MG TABLET.DR PO SCH (06:51)
[2016-11-08] MEDS: INSULIN REGULAR, HUMAN 100 UNIT/ML 3 ML VIAL SQ PRN ×2 (06:52→17:21)
--- NOTE | 2016-11-08 06:53 | NUR ---
RN NOTES PK=[id number]. PATIENT REFUSED INSULIN. EDUCATED ABOUT RISKS AND BENEFITS, VERBALIZED UNDERSTANDING TO NO AVAIL.
--- NOTE | 2016-11-08 07:20 | NUR ---
RN INTIAL NOTE RECEIVED REPORT FROM PM NURSE. PT JORDANIAN SPEAKING A/OX3. IV FELISA MIDLINE FLUSHED AND PATENT. PT C/O PAIN 03/01. PT KEEP WARM AND DRY. SELF REPOSITION FOR SAFETY AND COMFORT. PT AMB W/WALKER. PT RA NO C/O ACUTE SOB. BED RAILS UP, BED LOW AND LOCKED AND CALL LIGHT WITH IN REACH. WILL CONTINUE TO MONITOR CLOSELY.
[2016-11-08 08:00] VITALS: BP 119/73
[2016-11-08] MEDS: FERROUS SULFATE (325 MG) 325 MG/TAB TABLET PO SCH ×2 (08:19→16:31)
[2016-11-08] MEDS: LEFLUNOMIDE 10 MG TABLET PO SCH (08:19)
[2016-11-08] MEDS: PAROXETINE HCL 10 MG TABLET PO SCH (08:19)
[2016-11-08] MEDS: FUROSEMIDE 40 MG TABLET PO SCH (08:19)
[2016-11-08] MEDS: RIFAMPIN 300 MG CAPSULE PO SCH (08:19)
[2016-11-08] MEDS: ISONIAZID (300 MG) 300 MG TABLET PO SCH (08:20)
[2016-11-08] MEDS: GABAPENTIN 100 MG CAPSULE PO SCH ×3 (08:20→21:00)
[2016-11-08] MEDS: PYRIDOXINE HCL 50 MG TABLET PO SCH (08:20)
[2016-11-08] MEDS: MEGESTROL ACETATE SUSP 400 MG/10 ML UDC PO SCH (08:22)
[2016-11-08 08:54] LABS: CALCIUM, SERUM 11.4 mg/dL (8.5-10.1); CREATININE 2.1 mg/dL (0.6-1.3); POTASSIUM 3.9 mmol/L (3.5-5.1)
[2016-11-08] MEDS: *INSULIN REGULAR(HUMULIN R)HUM 100 UNIT/ML VIAL SQ PRN ×2 (12:25→22:26)
[2016-11-08] MEDS ORDERED: IV NS 0.9% 0 ML IV ONE ×3 (14:58→15:06)
[2016-11-08 16:00] VITALS: BP 124/76
[2016-11-08] MEDS: ATORVASTATIN 40 MG TABLET PO SCH (17:07)
--- NOTE | 2016-11-08 17:23 | NUR ---
RN NOTE PT B.S. TAKEN RESULTED IN 157. PT REFUSED INSULIN.
--- NOTE | 2016-11-08 18:50 | NUR ---
RN CLOSING NOTE PT V/S WNL. PT REFUSED 1730 INSULIN COVERAGE ALL OTHER MEDICATIONS GIVEN . PT REMAINED STABLE THROUGHOUT SHIFT. NO C/O OF ACUTE SOB. ALL SAFETY MEASURES IN PLACED. ALL MD ORDERS CARRIED OUT.REPORT GIVEN TO PM NURSE FOR BUTCH.
[2016-11-08 20:00] VITALS: BP 113/60
--- NOTE | 2016-11-08 20:00 | NUR ---
MS RN NOTE PT IN BED AWAKE. A/O X 3 BERMUDIAN SPEAKING, NO SOB, NO DISTRESS OR DISCOMFORT NOTED. DENIES PAIN. IVF NS WITH 10 MEQ KCL INFUSING AT 100 ML/HR, NO SS OF INFILTRATION NOTED. NO S/S OF HYPO OR HYPERGLYCEMIA NOTED. REMAIN IN ISOLATION FOR TB, ISOLATION PRECAUTIONS TAKEN. VSS. SIDE RAILS UP X 2 AND CALL LIGHT WITHIN REACH. CONTINUE TO MONITOR HIM.
[2016-11-08] MEDS: ZOLPIDEM TARTRATE 5 MG TABLET PO PRN (22:17)
[2016-11-08] MEDS: QUETIAPINE FUMARATE 25 MG TABLET PO SCH (22:19)
--- NOTE | 2016-11-08 22:20 | NUR ---
MS RN NOTE PT C/O PAIN 6/10 LOWER BACK AND ASKING FOR SLEEPING MED. NORCO 1 TAB PO GIVEN FOR PAIN AND AMBIEN 5 MG PO GIVEN FOR SLEEP. CONTINUE TO MONITOR HIM.
[2016-11-08] MEDS: INSULIN DETEMIR 100 UNIT/ML CARTRIDGE SQ SCH (22:25)
--- NOTE | 2016-11-08 23:20 | NUR ---
MS RN NOTE PAIN SUBSIDED 2/10 AND PT FALLING ASLEEP. IVF INFUSING WELL, NO DISTRESS NOTED.
[2016-11-09 04:00] VITALS: BP 117/69
--- NOTE | 2016-11-09 05:51 | NUR ---
MS RN NOTE BS CHECKED 157, PT REFUSED INSULIN COVERAGE.
[2016-11-09] MEDS: BLOOD SUGAR DIAGNOSTIC 1 EACH STRIP VI SCH ×4 (05:52→22:09)
--- NOTE | 2016-11-09 06:20 | NUR ---
MS RN NOTE PT IN BED ASLEEP, AROUSABLE. NO DISTRESS OR DISCOMFORT NOTED. DENIES PAIN. IVF INFUSING WELL, NO S/S OF INFILTRATION NOTED. WILL ENDORSE TO DAY SHIFT NURSE FOR CONTINUE TO CARE.
[2016-11-09] MEDS: HYDROCODONE/APAP 5/325MG 1 EACH TABLET PO PRN ×3 (06:48→21:58)
--- NOTE | 2016-11-09 06:49 | NUR ---
MS RN NOTE PT WOKE UP C/O PAIN IN LOWER BACK 01/30. NORCO 1 TAB PO GIVEN. WILL ENDORSE TO DAY SHIFT FOR CONTINUE TO MONITOR.
[2016-11-09 07:35] LABS: CALCIUM, SERUM 10.6 mg/dL (8.5-10.1); CREATININE 1.9 mg/dL (0.6-1.3); POTASSIUM 3.3 mmol/L (3.5-5.1)
[2016-11-09 08:00] VITALS: BP 124/74
[2016-11-09] MEDS: ETHAMBUTOL HCL (400 MG) 400 MG TABLET PO SCH (09:06)
[2016-11-09] MEDS: FUROSEMIDE 40 MG TABLET PO SCH (09:07)
[2016-11-09] MEDS: PYRIDOXINE HCL 50 MG TABLET PO SCH (09:07)
[2016-11-09] MEDS: GABAPENTIN 100 MG CAPSULE PO SCH ×4 (09:07→21:57)
[2016-11-09] MEDS: ISONIAZID (300 MG) 300 MG TABLET PO SCH (09:07)
[2016-11-09] MEDS: LEFLUNOMIDE 10 MG TABLET PO SCH (09:07)
[2016-11-09] MEDS: RIFAMPIN 300 MG CAPSULE PO SCH (09:07)
[2016-11-09] MEDS: FERROUS SULFATE (325 MG) 325 MG/TAB TABLET PO SCH ×2 (09:07→17:01)
[2016-11-09] MEDS: PAROXETINE HCL 10 MG TABLET PO SCH (09:07)
[2016-11-09] MEDS: PANTOPRAZOLE 40 MG TABLET.DR PO SCH (09:08)
[2016-11-09] MEDS: PYRAZINAMIDE 500 MG TABLET PO SCH (09:08)
[2016-11-09] MEDS: MEGESTROL ACETATE SUSP 400 MG/10 ML UDC PO SCH (09:10)
--- NOTE | 2016-11-09 13:00 | NUR ---
RN INITIAL NOTE PT RECEIVED IN BED. TRANSFER OF CARE FROM AM RN. RESTING COMFORTABLY. RESPIRATIONS ARE EVEN AND UNLABORED. NO S/S OF DISCOMFORT OR PAIN. PT ABLE TO MAKE NEEDS KNOWN. SKIN WARM AND DRY TO TOUCH. IV SITE C/D/I. NS RUNNING AT 100 ML/HR. ISOLATION PRECAUTIONS OBSERVED. SAFETY MEASURES IMPLEMENTED. CALL LIGHT WITHIN REACH. WILL CONTINUE TO MONITOR.
[2016-11-09] MEDS: Potassium Chloride 10 MEQ in IV NS 0.9% 1,000 ML IV PRN ×2 (13:31→21:57)
[2016-11-09] MEDS: INSULIN REGULAR, HUMAN 100 UNIT/ML 3 ML VIAL SQ PRN (13:40)
[2016-11-09 16:00] VITALS: BP 134/79
[2016-11-09] MEDS: ATORVASTATIN 40 MG TABLET PO SCH (17:01)
--- NOTE | 2016-11-09 19:11 | NUR ---
RN CLOSING NOTE PT RESTING IN BED COMFORTABLY, ALL MD ORDERS CARRIED OUT. PT KEPT CLEAN AND DRY. IV C/D/I. PATENT. ALL SAFETY MEASURES IN PLACE AT ALL TIMES. REPORT WILL BE GIVEN TO PM RN FOR BUTCH.
[2016-11-09 20:00] VITALS: BP 125/70
--- NOTE | 2016-11-09 20:04 | NUR ---
MS RN NOTE PT IN BED SITTING UP. A/O X 3, ROMANIAN SPEAKING BUT UNDERSTAND SOME UPPER SORBIAN. NO SOB, NO DISTRESS OR DISCOMFORT NOTED. DENIES PAIN. IVF NS WITH 10 MEQ KCL INFUSING WELL, NO S/S OF INFILTRATION NOTED. REMAIN IN ISOLATION FOR TB, ISOLATION PRECAUTIONS TAKEN. SIDE RAILS UP X 2 AND CALL LIGHT WITHIN REACH. VSS. CONTINUE TO MONITOR HIM.
[2016-11-09] MEDS: QUETIAPINE FUMARATE 25 MG TABLET PO SCH (21:57)
[2016-11-09] MEDS: ZOLPIDEM TARTRATE 5 MG TABLET PO PRN (21:57)
--- NOTE | 2016-11-09 21:58 | NUR ---
MS RN NOTE PT AWAKE C/O PAIN IN LOWER BACK 10, NORCO 1 TAB PO GIVEN. IVF INFUSING WELL, NO S/S OF INFILTRATION NOTED. CONTINUE TO MONITOR HIM.
[2016-11-09] MEDS: *INSULIN REGULAR(HUMULIN R)HUM 100 UNIT/ML VIAL SQ PRN (22:07)
[2016-11-09] MEDS: INSULIN DETEMIR 100 UNIT/ML CARTRIDGE SQ SCH (22:09)
--- NOTE | 2016-11-09 23:00 | NUR ---
MS RN NOTE PAIN SUBSIDED 09/01. PT FALLING ASLEEP, CONTINUE TO MONITOR HIM.
[2016-11-10] MEDS: HYDROCODONE/APAP 5/325MG 1 EACH TABLET PO PRN (02:01)
[2016-11-10] MEDS: HYDROCORTISONE 1% CREAM 28.35 GM TUBE TP PRN (02:01)
--- NOTE | 2016-11-10 03:00 | NUR ---
MS RN NOTE PAIN SUBSIDED 09/01. PT FALLING ASLEEP, CONTINUE TO MONITOR HIM.
[2016-11-10 04:00] VITALS: BP 119/62
[2016-11-10 04:08] VITALS: BP 117/62
[2016-11-10] MEDS: BLOOD SUGAR DIAGNOSTIC 1 EACH STRIP VI SCH ×4 (05:47→21:18)
--- NOTE | 2016-11-10 05:47 | NUR ---
MS RN NOTE BLOODSUGAR CHECKED 66, OJ X 2 GIVEN WITH GRAM CRACKERS. PT IN NO DISTRESS OR DISCOMFORT.
--- NOTE | 2016-11-10 06:36 | NUR ---
MS RN NOTE PT IN BED ASLEEP, AROUSABLE. NO DISTRESS OR DISCOMFORT NOTED. DENIES PAIN. IVF INFUSING WELL, NO S/S OF INFILTRATION NOTED. SIDE RAILS UP X 2 AND CALL LIGHT WITHIN REACH. WILL ENDORSE TO DAY SHIFT NURSE FOR CONTINUE TO CARE.
[2016-11-10 07:08] LABS: CALCIUM, SERUM 10.3 mg/dL (8.5-10.1); POTASSIUM 3.8 mmol/L (3.5-5.1)
[2016-11-10 08:00] VITALS: BP 122/71
[2016-11-10] MEDS: PANTOPRAZOLE 40 MG TABLET.DR PO SCH (08:00)
[2016-11-10] MEDS: FERROUS SULFATE (325 MG) 325 MG/TAB TABLET PO SCH ×2 (08:50→16:36)
[2016-11-10] MEDS: ISONIAZID (300 MG) 300 MG TABLET PO SCH (08:50)
[2016-11-10] MEDS: FUROSEMIDE 40 MG TABLET PO SCH (08:50)
[2016-11-10] MEDS: LEFLUNOMIDE 10 MG TABLET PO SCH (08:50)
[2016-11-10] MEDS: PAROXETINE HCL 10 MG TABLET PO SCH (08:51)
[2016-11-10] MEDS: PYRIDOXINE HCL 50 MG TABLET PO SCH (08:51)
[2016-11-10] MEDS: RIFAMPIN 300 MG CAPSULE PO SCH (08:51)
[2016-11-10] MEDS: MEGESTROL ACETATE SUSP 400 MG/10 ML UDC PO SCH (09:00)
[2016-11-10] MEDS: GABAPENTIN 100 MG CAPSULE PO SCH ×4 (09:00→21:17)
--- NOTE | 2016-11-10 09:00 | NUR ---
MS RN NOTE Pt resting in bed. AOx4, no s/s distress. Kcl running at 100ml/hr in FELISA midline. Voiding clear yellow urine in urinal. All needs met. Will cont to monitor.
[2016-11-10] MEDS: Potassium Chloride 10 MEQ in IV NS 0.9% 1,000 ML IV PRN (10:17)
[2016-11-10] MEDS: INSULIN REGULAR, HUMAN 100 UNIT/ML 3 ML VIAL SQ PRN ×2 (12:11→21:25)
[2016-11-10 16:00] VITALS: BP 110/71
[2016-11-10] MEDS: ATORVASTATIN 40 MG TABLET PO SCH (17:00)
--- NOTE | 2016-11-10 17:33 | NUR ---
MS RN NOTE No s/s distress, all needs met. Voiding good amt in urinal. Refused insulin for BG 136. Had BM. VSS. Will endorse to next RN.
--- NOTE | 2016-11-10 19:20 | NUR ---
RN INITIAL NOTE RECEIVED PT IN NO ACUTE DISTRESS IN BED. PT IS A/O X 4 AND ABLE TO MAKE NEEDS KNOWN. PT IS ON RA AND TOLERATING WELL WITH O2 SAT @ 98%. PT DENIES ANY SOB, DIFFICULTY BREATHING OR PAIN AT THIS TIME. PT HAS FELISA MIDLINE THAT IS CLEAN DRY INTACT AND PATENT WITH NS WITH 10 MEQ KCL @ 100ML/HR. BED IN LOW LOCK POSITION WITH RIALS UP X 2. CALL LIGHT WITHIN REACH AND ALL SAFETY MEASURES ENSURED AND CARRIED OUT. WILL CONTINUE TO MONITOR PT.
[2016-11-10 20:00] VITALS: BP 117/63
[2016-11-10] MEDS: QUETIAPINE FUMARATE 25 MG TABLET PO SCH (21:17)
[2016-11-10] MEDS: INSULIN DETEMIR 100 UNIT/ML CARTRIDGE SQ SCH (21:19)
[2016-11-11 04:00] VITALS: BP 110/78
[2016-11-11] MEDS: HYDROCODONE/APAP 5/325MG 1 EACH TABLET PO PRN ×3 (05:44→22:00)
[2016-11-11] MEDS: PANTOPRAZOLE 40 MG TABLET.DR PO SCH ×2 (06:41→08:04)
[2016-11-11] MEDS: BLOOD SUGAR DIAGNOSTIC 1 EACH STRIP VI SCH ×4 (06:41→21:24)
[2016-11-11] MEDS: INSULIN REGULAR, HUMAN 100 UNIT/ML 3 ML VIAL SQ PRN ×2 (06:43→18:08)
[2016-11-11] MEDS: FUROSEMIDE 40 MG TABLET PO SCH (08:04)
[2016-11-11] MEDS: PAROXETINE HCL 10 MG TABLET PO SCH (08:04)
[2016-11-11] MEDS: ISONIAZID (300 MG) 300 MG TABLET PO SCH (08:04)
[2016-11-11] MEDS: LEFLUNOMIDE 10 MG TABLET PO SCH (08:04)
[2016-11-11] MEDS: MEGESTROL ACETATE SUSP 400 MG/10 ML UDC PO SCH (08:05)
[2016-11-11] MEDS: RIFAMPIN 300 MG CAPSULE PO SCH (08:13)
[2016-11-11] MEDS: FERROUS SULFATE (325 MG) 325 MG/TAB TABLET PO SCH ×2 (08:13→17:03)
[2016-11-11] MEDS: PYRIDOXINE HCL 50 MG TABLET PO SCH (08:14)
[2016-11-11] MEDS: PYRAZINAMIDE 500 MG TABLET PO SCH (09:59)
[2016-11-11] MEDS: ETHAMBUTOL HCL (400 MG) 400 MG TABLET PO SCH (09:59)
[2016-11-11] MEDS: GABAPENTIN 100 MG CAPSULE PO SCH ×4 (09:59→21:24)
[2016-11-11 11:33] LABS: BASOPHILS # (AUTO) 0.1 /CMM (0.0-0.2); EOSINOPHILS # (AUTO) 1.3 /CMM (0.0-0.7); EOSINOPHILS % (AUTO) 10.9 % (0.0-6.0); HEMATOCRIT 38 % (39-51); LYMPHOCYTES # (AUTO) 3.6 /CMM (0.8-4.8); LYMPHOCYTES % (AUTO) 29.8 % (20.0-44.0); MEAN CORPUSCULAR HEMOGLOBIN 26 PG (26.0-33.0); MEAN CORPUSCULAR HGB CONC 32 g/dl (31.0-36.0); MEAN CORPUSCULAR VOLUME 81 fL (80-96); MONOCYTES # (AUTO) 1.7 /CMM (0.1-1.30); MONOCYTES % (AUTO) 13.6 % (2.0-12.0); NEUTROPHILS # (AUTO) 5.4 /CMM (1.8-8.9); NEUTROPHILS % (AUTO) 44.7 % (43.0-81.0); PLATELET COUNT (AUTO) 395 /CMM (150-450); RDW COEFFICIENT OF VARIATION 16.6 (11.5-15.0); RED BLOOD CELL COUNT(AUTO) 4.61 MIL/uL (4.5-6.0); WHITE BLOOD COUNT (AUTO) 12.1 K/uL (4.3-11.0)
[2016-11-11 11:45] LABS: CALCIUM, SERUM 11.5 mg/dL (8.5-10.1); CREATININE 2.2 mg/dL (0.6-1.3); MAGNESIUM 2.2 mg/dL (1.8-2.4); POTASSIUM 3.7 mmol/L (3.5-5.1)
[2016-11-11 12:00] VITALS: BP 115/78
[2016-11-11] MEDS: ATORVASTATIN 40 MG TABLET PO SCH (17:03)
--- NOTE | 2016-11-11 19:49 | NUR ---
RN MS - INITIAL NOTE PATIENT IN BED, ALERT AND ORIENTED X3. NO S/S OF SOB OR ANY DISCOMFORT NOTED. PATIENT CURRENTLY ON ROOM AIR WITH GOOD SATURATION. VSS. BED IN LOW POSITION AND LOCKED. SIDERAILS X2 UP. INSTRUCTED PATIENT TO USE CALL LIGHT WHEN ASSISTANCE IS NEEDED. WILL CONTINUE TO MONITOR PATIENT.
[2016-11-11 20:00] VITALS: BP 109/69
[2016-11-11] MEDS: Potassium Chloride 10 MEQ in IV NS 0.9% 1,000 ML IV PRN (21:23)
[2016-11-11] MEDS: QUETIAPINE FUMARATE 25 MG TABLET PO SCH (21:24)
[2016-11-11] MEDS: INSULIN DETEMIR 100 UNIT/ML CARTRIDGE SQ SCH (21:29)
[2016-11-11] MEDS: *INSULIN REGULAR(HUMULIN R)HUM 100 UNIT/ML VIAL SQ PRN (21:32)
[2016-11-12] MEDS: ZOLPIDEM TARTRATE 5 MG TABLET PO PRN (00:49)
[2016-11-12 04:00] VITALS: BP 110/70
[2016-11-12] MEDS: HYDROCODONE/APAP 5/325MG 1 EACH TABLET PO PRN (04:46)
[2016-11-12 06:44] LABS: CALCIUM, SERUM 10.5 mg/dL (8.5-10.1); POTASSIUM 3.9 mmol/L (3.5-5.1)
[2016-11-12] MEDS: BLOOD SUGAR DIAGNOSTIC 1 EACH STRIP VI SCH ×2 (06:46→12:18)
[2016-11-12] MEDS: INSULIN REGULAR, HUMAN 100 UNIT/ML 3 ML VIAL SQ PRN ×2 (06:56→12:20)
[2016-11-12 08:00] VITALS: BP 101/62
--- NOTE | 2016-11-12 08:00 | NUR ---
MX RN NOTE PATIENT IN BED , RESTING COMFORTABLY ,NO C]O PAIN OR DISCOMFORT, NO COUGH AT THIS TIME , PATIENT ALERT , ORIENTED X4 ,RT UPPER ARM MID LINE IN PLACE ,NO S\S INFECTION , BED IN LOWEST AND LOCKED POSITION , CALL LIGHT WITHIN REACH , ON IVF ORDERED . PLAN OF CARE DISCUSSED WITH PATIENT WILL CONT TO MONITOR CLOSELY
[2016-11-12] MEDS: MEGESTROL ACETATE SUSP 400 MG/10 ML UDC PO SCH (08:09)
[2016-11-12] MEDS: FERROUS SULFATE (325 MG) 325 MG/TAB TABLET PO SCH (08:09)
[2016-11-12] MEDS: PAROXETINE HCL 10 MG TABLET PO SCH (08:11)
[2016-11-12] MEDS: GABAPENTIN 100 MG CAPSULE PO SCH ×2 (08:11→12:18)
[2016-11-12] MEDS: LEFLUNOMIDE 10 MG TABLET PO SCH (08:12)
[2016-11-12] MEDS: PYRIDOXINE HCL 50 MG TABLET PO SCH (08:13)
[2016-11-12] MEDS: RIFAMPIN 300 MG CAPSULE PO SCH (08:13)
[2016-11-12] MEDS: PANTOPRAZOLE 40 MG TABLET.DR PO SCH (08:14)
[2016-11-12] MEDS: ISONIAZID (300 MG) 300 MG TABLET PO SCH (08:14)
[2016-11-12] MEDS: FUROSEMIDE 40 MG TABLET PO SCH (08:14)
[2016-11-12 08:21] VITALS: BP 101/62
[2016-11-12] MEDS: Potassium Chloride 10 MEQ in IV NS 0.9% 1,000 ML IV PRN (09:45)
--- NOTE | 2016-11-12 11:30 | NUR ---
ms rn note patient had a shower, feel better , up on lou n it in acute distress ,cont on ivf as ordered
[2016-11-12] MEDS ORDERED: PYRI50TA74 PO (11:48)
[2016-11-12] MEDS ORDERED: GABA100C PO (11:48)
[2016-11-12] MEDS ORDERED: RIFA300C2 PO (11:48)
[2016-11-12] MEDS ORDERED: PYRA500T11 PO (11:48)
[2016-11-12] MEDS ORDERED: INSU100I19 SQ (11:48)
[2016-11-12] MEDS ORDERED: ETHAMBUTOL HCL PO (11:48)
[2016-11-12] MEDS ORDERED: FERR325T28 PO (11:48)
--- NOTE | 2016-11-12 14:45 | NUR ---
MS RN NOTE PER DR SANTOS D\C TO SNF , CALLED TO [facility] , REPORT GIVEN TO YONIS MEHTA , OK TO REMOVE MID LINE BEFORE LEAVING HOSPITAL, NOTIFIED THAT PATIENT IS D\C
--- NOTE | 2016-11-12 15:43 | NUR ---
MS RN NOTE MID LINE REMOVED PRESSURE DRESSING APPLIED , NO S\S BLEEDING NOTED , AMBULANCE ARRIVED REPORT GIVEN
[2016-11-12 16:00] VITALS: BP 123/69
--- NOTE | 2016-11-12 16:00 | NUR ---
MS RN NOTE WANT TO FACILITY WITH STABLE CONDITION
== END 2016-11-12 16:00 | DRG 137 ==
LOC: ER 22:25 → TELE 23:13 → UNDOADMIN 23:13 → MEDSG1 23:48
PROVIDERS: ADMIT Nurse Practitioner Acute Care; ATTEND Nurse Practitioner Acute Care
PROC: 07DR3ZX Extraction of Iliac Bone Marrow, Percutaneous Approach, Diagnostic (ICD-10-PCS; principal; 2016-11-02)
PROC: 05H533Z Insertion of Infusion Device into Right Subclavian Vein, Percutaneous Approach (ICD-10-PCS; 2016-11-06)
DX: A15.0 Tuberculosis of lung (principal); N17.0 Acute kidney failure with tubular necrosis; N18.4 Chronic kidney disease, stage 4 (severe); E87.2 Acidosis; D86.9 Sarcoidosis, unspecified; E11.22 Type 2 diabetes mellitus with diabetic chronic kidney disease; E11.42 Type 2 diabetes mellitus with diabetic polyneuropathy; I12.9 Hypertensive chronic kidney disease with stage 1 through stage 4 chronic kidney disease, or unspecified chronic kidney disease; J18.9 Pneumonia, unspecified organism; E78.5 Hyperlipidemia, unspecified; M06.9 Rheumatoid arthritis, unspecified; K21.9 Gastro-esophageal reflux disease without esophagitis; F32.9 Major depressive disorder, single episode, unspecified; E87.6 Hypokalemia; G89.29 Other chronic pain; D50.9 Iron deficiency anemia, unspecified; Z87.891 Personal history of nicotine dependence; E11.65 Type 2 diabetes mellitus with hyperglycemia; E86.9 Volume depletion, unspecified; Z87.01 Personal history of pneumonia (recurrent); D72.829 Elevated white blood cell count, unspecified; E83.52 Hypercalcemia; D63.8 Anemia in other chronic diseases classified elsewhere; R74.8 Abnormal levels of other serum enzymes; R63.4 Abnormal weight loss; Z68.25 Body mass index [BMI] 25.0-25.9, adult; L71.9 Rosacea, unspecified; I88.8 Other nonspecific lymphadenitis; F20.9 Schizophrenia, unspecified
CPT/HCPCS: 36415; 71010-TC; 80048-TC; 80053-TC; 80061-TC; 80074; 81000-TC; 82247-TC; 82248-TC; 82570-TC; 82728-TC; 82784; 82962-TC; 83520; 83540-TC; 83605-TC; 83615-TC; 83735-TC; 83970; 84100-TC; 84155; 84155-TC; 84156; 84165; 84166; 84300-TC; 85025-TC; 85730-TC; 86256; 86334; 86704; 86706; 87040-TC; 87081-TC; 87116; 87206; 87350; 94640-TC; A4216; A4218; A4606; A6402; J1815; J1940; J2430; J3480; J3490; J7030; J7040; Z7610

== ENCOUNTER 2018-12-14 15:49 | Inpatient (IN) | payer MEDICAID ==
[~2018-12-14] VITALS: Ht 157.5 cm; Wt 72.6 kg
[~2018-12-14 15:49] MED LIST changes: +ETHAMBUTOL HCL PO; +FERR325T28 PO; +GABA100C PO; +INSU100I19 SQ; +ISON300T19 PO; -ISON300T4 PO; -PARO10TA26 PO; +PARO10TA86 PO; +PYRA500T13 PO; +PYRI50TA15 PO; +RIFA300C2 PO
--- NOTE | 2018-12-14 15:58 | NUR ---
KIKIVARSHA, FROM [facility], CAME IN DUE TO GI BLEED, BLACK TARRY STOOL SINCE YESTERDAY. TO ER BED1 , HOOKED TO MONITOR, CHANGED TO GOWN, PROVIDED W WARM BLANKET, AWAITING MD CHRISTIE.
--- NOTE | 2018-12-14 15:59 | NUR ---
DR BERNAL AT BEDSIDE
[2018-12-14] MEDS ORDERED: IV NS 0.9% 500 ML BAG IV ONE (16:00)
[2018-12-14 16:19] LABS: BASOPHILS # (AUTO) 0.1 /CMM (0.0-0.2); BASOPHILS % (AUTO) 0.7 % (0.0-2.0); EOSINOPHILS % (AUTO) 2.7 % (0.0-6.0); HEMATOCRIT 31 % (39-51); HEMOGLOBIN 9.9 g/dL (13.5-17.5); LYMPHOCYTES # (AUTO) 5.8 /CMM (0.8-4.8); LYMPHOCYTES % (AUTO) 41.6 % (20.0-44.0); MEAN CORPUSCULAR HGB CONC 32 g/dl (31.0-36.0); MEAN CORPUSCULAR VOLUME 83 fL (80-96); MONOCYTES # (AUTO) 1.5 /CMM (0.1-1.30); NEUTROPHILS # (AUTO) 6.1 /CMM (1.8-8.9); PLATELET COUNT (AUTO) 185 /CMM (150-450); RED BLOOD CELL COUNT(AUTO) 3.67 MIL/uL (4.5-6.0); WHITE BLOOD COUNT (AUTO) 13.9 K/uL (4.3-11.0)
[2018-12-14] MEDS ORDERED: PANTOPRAZOLE 40 MG VIAL ONE (16:37)
[2018-12-14 16:46] LABS: ALANINE AMINOTRANSFERASE 18 U/L (12-78); ALKALINE PHOSPHATASE 128 U/L (46-116); ASPARTATE AMINOTRANSFERASE 15 U/L (15-37); BILIRUBIN,TOTAL 0.2 mg/dL (0.2-1.0); CALCIUM, SERUM 9.1 mg/dL (8.5-10.1); CARBON DIOXIDE 31 mmol/L (21-32); CHLORIDE 103 mmol/L (98-107); CREATININE 1.6 mg/dL (0.6-1.3); LIPASE 63 U/L (73-393); POTASSIUM 4.3 mmol/L (3.5-5.1); SODIUM SERUM 137 mmol/L (136-145); TOTAL PROTEIN, SERUM 6.3 g/dL (6.4-8.2); UREA NITROGEN, BLOOD 42 mg/dL (7-18)
--- NOTE | 2018-12-14 16:47 | NUR ---
DR EVERARDO KULKARNI
[2018-12-14 16:49] LABS: GLUCOSE 391 mg/dL (74-106)
[2018-12-14] MEDS: PANTOPRAZOLE 80 MG in IV NS 0.9% 500 ML IV ONE ×2 (16:51→17:17)
[2018-12-14] MEDS ORDERED: INSULIN REGULAR, HUMAN 100 UNIT/ML 10 ML VIAL ONE (16:58)
[2018-12-14] MEDS ORDERED: INSULIN REGULAR, HUMAN 100 UNIT/ML 10 ML VIAL SQ ONE (17:00)
[2018-12-14] MEDS ORDERED: IV NS 0.9% 1,000 ML BAG IV ONE (17:00)
[2018-12-14] MEDS ORDERED: PANTOPRAZOLE 80 MG in IV NS 0.9% 100 ML IV ONE (17:30)
--- NOTE | 2018-12-14 17:31 | NUR ---
NURSING SUP CALLED. GAVE BED [id number]. NURSE JIMMIE.
[2018-12-14] MEDS ORDERED: NPH,100V SQ ×3 (18:08)
[2018-12-14] MEDS ORDERED: NA P133E RC (18:08)
[2018-12-14] MEDS ORDERED: MIRT15TA PO (18:08)
[2018-12-14] MEDS ORDERED: MAGN400O6 PO (18:08)
[2018-12-14] MEDS ORDERED: ASPI-1152 PO (18:08)
[2018-12-14] MEDS ORDERED: ATOR80TA PO (18:08)
[2018-12-14] MEDS ORDERED: EMPA10TA PO (18:08)
[2018-12-14] MEDS ORDERED: BISA10SU61 RC (18:08)
[2018-12-14] MEDS ORDERED: GABA-536 PO (18:08)
[2018-12-14] MEDS ORDERED: BENA5TAB5 PO (18:08)
[2018-12-14] MEDS ORDERED: CHOL200026 PO (18:08)
[2018-12-14] MEDS ORDERED: TEMA15CA5 PO (18:08)
[2018-12-14] MEDS ORDERED: CETI10CA PO (18:08)
[2018-12-14] MEDS ORDERED: ACET-73 PO (18:08)
[2018-12-14] MEDS ORDERED: ACET325T53 PO (18:08)
[2018-12-14] MEDS ORDERED: INSU100V36 SQ (18:08)
[2018-12-14] MEDS ORDERED: LACT-215 PO (18:08)
--- NOTE | 2018-12-14 18:12 | NUR ---
REPORT GIVEN TO MS EDILBERTO MEHTA.
[2018-12-14 18:35] VITALS: BP 109/69
--- NOTE | 2018-12-14 18:35 | NUR ---
PT. ARRIVED ON FLOOR ALERT AND ORIENTED X3-4.REQUESTING FOOD-HAD INSULIN IN ER.GIVEN SANDWICH AND JUICE.VS TAKEN.CALL GARCIA WITHIN REACH.IV INTACT.
--- NOTE | 2018-12-14 19:30 | NUR ---
TOURISM RADIO PRESENTERMUSEUM DIRECTOR NOTES Received patient on bed, on Awad's position. On RA, no SOB/respiratory distress noted. Patient denies discomfort at this time. With patent peripheral IV line LAC G#20, SL. Admission routine done. Belongings inventory completed by the assigned HAND BRAILLE TRANSCRIBER. Kept on bed comfortable, clean and dry. Kept bed low and locked, siderails x2 up. Call light within easy reach. 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 Will continue to monitor accordingly.
[2018-12-14 20:00] VITALS: BP 110/69
--- NOTE | 2018-12-14 20:00 | NUR ---
CORPORATE STRATEGY ASSOCIATE NOTES Sent a paged to Dr Harvey for admission orders. Awaiting for call back at this time.
[2018-12-14 20:17] VITALS: BP 110/65
--- NOTE | 2018-12-14 20:46 | NUR ---
STANDARD MACHINE STITCHER NOTES Received a call from JACKELINE Gonzalez, personnel technician for Dr. Harvey, with orders noted and carried out.
[2018-12-14] MEDS ORDERED: INSULIN REGULAR, HUMAN 100 UNIT/ML 3 ML VIAL SQ PRN (21:00)
[2018-12-14] MEDS ORDERED: IV D5/0.45 NACL 1,000 ML IV PRN (21:00)
[2018-12-14] MEDS ORDERED: DEXTROSE 50%-WATER 50 ML DISP.SYRIN IV PRN ×2 (21:00→22:30)
[2018-12-14] MEDS ORDERED: GABAPENTIN 400 MG CAPSULE PO ONE (21:30)
[2018-12-14] MEDS ORDERED: PANTOPRAZOLE 40 MG VIAL IV SCH (21:30)
[2018-12-14] MEDS ORDERED: TEMAZEPAM 15 MG CAPSULE PO SCH (22:00)
[2018-12-14] MEDS: TEMAZEPAM 15 MG CAPSULE PO PRN (22:27)
[2018-12-14] MEDS: GABAPENTIN 400 MG CAPSULE PO ONE ×2 (22:27→22:28)
[2018-12-14] MEDS: PANTOPRAZOLE 40 MG VIAL IV SCH (22:35)
[2018-12-14] MEDS: INSULIN REGULAR, HUMAN 100 UNIT/ML 3 ML VIAL SQ PRN (23:51)
[2018-12-14] MEDS: BLOOD SUGAR DIAGNOSTIC 1 EACH STRIP IN SCH (23:54)
--- NOTE | 2018-12-14 23:56 | NUR ---
LOG HAUL OPERATOR NOTES Checked BS as ordered - 439. Patient denies discomfort at this time, asleep easily awaken, no unusualities noted at this time. Administered 10 units insulin as ordered. Notified carton forming machine adjuster MD, spoke with JACKELINE Gonzalez with no additional orders. Will continue to monitor accordingly.
[2018-12-15] VITALS: BP 82/42
[2018-12-15] MEDS ORDERED: BLOOD SUGAR DIAGNOSTIC 1 EACH STRIP IN SCH
--- NOTE | 2018-12-15 | NUR ---
GLUCOSE CHECK PT GLUCOSE AT 179 PT NPO POST MIDNIGHT, NO INSULIN GIVEN
[2018-12-15 04:37] VITALS: BP 97/54
[2018-12-15] MEDS: BLOOD SUGAR DIAGNOSTIC 1 EACH STRIP IN SCH ×3 (05:50→16:56)
[2018-12-15] MEDS: IV D5/0.45 NACL 1,000 ML IV PRN ×2 (05:50→09:25)
[2018-12-15] MEDS: INSULIN REGULAR, HUMAN 100 UNIT/ML 3 ML VIAL SQ PRN ×3 (06:03→16:55)
--- NOTE | 2018-12-15 06:42 | NUR ---
CALL WORKER CLOSING NOTES Patient noted asleep after midnight. No new unusualities noted. All nursing needs attended. Due meds given as ordered. Noted with optimal urine output, no BM noted. Still for stool collection for Occult blood test as ordered. Kept clean, dry and comfortably. Kept bed low and locked, siderails x2 up. Call light within easy reach. Kept on NPO as ordered. On tele monitor with SR with 1st degree AV block with BBB noted. No symptoms noted. Endorsed to the next shift.
--- NOTE | 2018-12-15 07:30 | NUR ---
Tele/RN - Assessment Patient awake, A/O x 4, no complaints overnight, tele shows SR with first degree AVB/BBB, denies chest or abdominal pain at this time, no active bleeding, no apparent distress noted, stable on room air, currently NPO. IVF D5 1/2 NS at 80 ml/hr infusing well on the LAC with no signs of infiltration. Morning labs pending result. Skin is intact, independent with bed mobility. Fall precautions maintained. Patient educated on plan of care. Will continue with current medical management.
[2018-12-15 08:00] VITALS: BP 100/65
[2018-12-15 08:19] LABS: BASOPHILS % (AUTO) 0.4 % (0.0-2.0); EOSINOPHILS % (AUTO) 3.2 % (0.0-6.0); HEMATOCRIT 25 % (39-51); LYMPHOCYTES # (AUTO) 3.7 /CMM (0.8-4.8); LYMPHOCYTES % (AUTO) 33.6 % (20.0-44.0); MEAN CORPUSCULAR HGB CONC 33 g/dl (31.0-36.0); MEAN CORPUSCULAR VOLUME 82 fL (80-96); MONOCYTES # (AUTO) 1.2 /CMM (0.1-1.30); MONOCYTES % (AUTO) 10.4 % (2.0-12.0); NEUTROPHILS # (AUTO) 5.8 /CMM (1.8-8.9); NEUTROPHILS % (AUTO) 52.4 % (43.0-81.0); PLATELET COUNT (AUTO) 200 /CMM (150-450); WHITE BLOOD COUNT (AUTO) 11.1 K/uL (4.3-11.0)
[2018-12-15 08:30] LABS: ALBUMIN 2.5 g/dL (3.4-5.0); BILIRUBIN,TOTAL 0.2 mg/dL (0.2-1.0); CREATININE 1.5 mg/dL (0.6-1.3); POTASSIUM 3.6 mmol/L (3.5-5.1); TOTAL PROTEIN, SERUM 5.3 g/dL (6.4-8.2)
[2018-12-15] MEDS ORDERED: GABAPENTIN 400 MG CAPSULE PO SCH (09:00)
--- NOTE | 2018-12-15 09:00 | NUR ---
MS/RN - Notes Tele monitoring discontinued, labs reviewed, WBC improved but hgb/hct dropped to 8.0/25, no active bleeding. Will continue to monitor closely.
--- NOTE | 2018-12-15 09:45 | NUR ---
MS/RN - PT Eval/Tx Patient able to ambulate with assistance, denies dizziness, no c/o abdominal pain, tolerated treatment well.
--- NOTE | 2018-12-15 11:15 | NUR ---
MS/RN - Telephone orders Dr. Harvye with order to change IVF to NS at 80 ml/hr and give NPH 25 units SQ Q8H.
[2018-12-15] MEDS ORDERED: IV NS 0.9% 1,000 ML BAG IV PRN (11:30)
--- NOTE | 2018-12-15 11:30 | NUR ---
MS/RN - S/b Dr. Harvey Seen and examined by Dr. Harvey, keep NPO for now, pending GI consult with Dr. Vazquez. May start clear liquids if ok with GI.
[2018-12-15] MEDS: INSULIN NPH, HUMAN ISOPHANE 100 UNIT/ML VIAL SQ SCH ×2 (12:22→21:00)
[2018-12-15] MEDS: IV NS 0.9% 1,000 ML IV PRN (12:23)
--- NOTE | 2018-12-15 12:50 | NUR ---
MS/RN - Md order Relayed to Dr. Harvey pt's request for his Gabapentin dose, per Md give Gabapentin 400 mg po TID.
[2018-12-15] MEDS: GABAPENTIN 400 MG CAPSULE PO SCH ×2 (13:13→16:54)
--- NOTE | 2018-12-15 14:00 | NUR ---
MS/RN - GI consult Seen and examined by Dr. Vazquez with order to start clear liquid diet, NPO after midnight, and obtain consent for EGD and colonoscopy.
--- NOTE | 2018-12-15 14:30 | NUR ---
MS/RN - Consent Patient signed the informed consent for EGD, Colonoscopy, anesthesia and blood transfusion.
[2018-12-15 16:00] VITALS: BP 100/60
--- NOTE | 2018-12-15 17:38 | NUR ---
MS/RN - End of shift summary No new events seen, remain afebrile, denies abdominal pain, no n/v, tolerated clear liquids, blood sugar uncontrolled, on sliding scale and NPH. Patient scheduled for EGD and colonoscopy tomorrow, will do bowel prep tonight and will place NPO after midnight. IVF NS at 80 ml/hr infusing well on the LAC with no signs of infiltration. All needs attended. Will continue with current plan of care and will endorse to night nurse accordingly.
[2018-12-15] MEDS ORDERED: BISACODYL (5 MG) 5 MG TABLET.DR PO ONE (18:00)
[2018-12-15] MEDS ORDERED: PEG 3350/NA SULF,BICARB,CL/KCL 4,000 ML BOTTLE PO ONE (19:00)
[2018-12-15 20:00] VITALS: BP 106/61
--- NOTE | 2018-12-15 20:29 | NUR ---
OPENING NOTES RECEIVED BEDSIDE REPORT, PT AWAKE ALERT ORIENTED X4, BREATHING EVEN AND UNLABORED ON ROOM AIR, NO SOB, COUGH OR CONGESTION. NO COMPLAINT OF PAIN OR DISCOMFORT AT THIS TIME. IV ACCESS ON THE L AC 20G WITH NS @80ML/HR AND TOLERATING. GLOLETLY AT BEDSIDE PT TO BE NPO POST MIDNIGHT FOR PROCEDURE IN AM. BED IN LOWEST LOCKED POSITION, CALL LIGHT WITHIN REACH AT ALL TIMES, WILL CONTINUE TO MONITOR FREQUENTLY.
[2018-12-15] MEDS: PANTOPRAZOLE 40 MG VIAL IV SCH (21:30)
--- NOTE | 2018-12-15 22:00 | NUR ---
glucose check gc- 68, pt to be npo post midnight, help night time dose of novolin, offered snack
--- NOTE | 2018-12-15 22:57 | NUR ---
Patient is alert, resides at [facility] [phone] . He ambulates with assistive device as needed and requires min assist with adl's. Current dc plan is to return to SNF once discharge. Addendum: 12/15/18 at 2257 by LINDSEY ASHBY RN Amended: Links added.
[2018-12-15] MEDS: TEMAZEPAM 15 MG CAPSULE PO PRN (23:23)
[2018-12-16] VITALS (7 sets, daily range): BP systolic 90–114; BP diastolic 53–69
[2018-12-16] MEDS: BLOOD SUGAR DIAGNOSTIC 1 EACH STRIP IN SCH ×5 (00:17→22:10)
[2018-12-16] MEDS: INSULIN NPH, HUMAN ISOPHANE 100 UNIT/ML VIAL SQ SCH ×3 (05:00→21:10)
--- NOTE | 2018-12-16 06:27 | NUR ---
RN MS CLOSING NOTES PT REMAINS IN BED, SLEEPING AROUSED TO NAME CALL, BREATHING EVEN AND UNLABORED ON ROOM AIR, NO SOB, COUGH OR CONGESTION. NO COMPLAINT OF PAIN OR DISCOMFORT AT THIS TIME. IV ACCESS ON THE L AC 20G WITH NS @80ML/HR AND TOLERATING. BOWEL PREP COMPLETED, NPO FOR PROCEDURE. BED IN LOWEST LOCKED POSITION, CALL LIGHT WITHIN REACH AT ALL TIMES, WILL ENDORSE TO DAY NURSE FOR BUTCH GL AT 149 NO INSULIN GIVEN, PT NPO.
--- NOTE | 2018-12-16 07:20 | NUR ---
RN MS NOTES PT RECEIVED IN BED, SLEEPING EASILY AROUSABLE, RESPIRATIONS EVEN AND UNLABORED ON ROOM AIR, NO SOB, COUGH OR CONGESTION. NO COMPLAINT OF PAIN OR DISCOMFORT AT THIS TIME. IV ACCESS ON THE L AC 20G WITH NS @80ML/HR AND TOLERATING. BOWEL PREP COMPLETED, NPO FOR PROCEDURE. BED IN LOWEST LOCKED POSITION, CALL LIGHT WITHIN REACH AT ALL TIMES, WILL CONTINUE TO MONITOR, PT NPO TO HAVE PROCEDURE AT 0800.
--- NOTE | 2018-12-16 07:39 | NUR ---
RN NOTES PT TAKEN TO OR FOR PROCEDURE IN STABLE CONDITION WILL CONTINUE TO MONITOR UPON RETURN TO UNIT
[2018-12-16 09:17] LABS: OCCULT BLOOD STOOL POSITIVE (NEGATIVE)
[2018-12-16] MEDS: GABAPENTIN 400 MG CAPSULE PO SCH ×3 (09:45→17:25)
[2018-12-16] MEDS: INSULIN REGULAR, HUMAN 100 UNIT/ML 3 ML VIAL SQ PRN ×3 (12:33→21:14)
--- NOTE | 2018-12-16 13:00 | NUR ---
RN NOTES PT REFUSED NPH MEDICATION HE HAD BEEN NPO ALL NIGHT AND NOT EATING MUCH ONLY WANTS TO TAKE REGULAR INSULIN FOR NOW, WILL CONTINUE TO MONITOR
[2018-12-16] MEDS ORDERED: ACETAMINOPHEN 325 MG TABLET PO PRN (15:30)
[2018-12-16] MEDS ORDERED: DEXTROSE 50%-WATER 50 ML DISP.SYRIN IV PRN (16:30)
--- NOTE | 2018-12-16 18:59 | NUR ---
RN MS NOTES PT IN BED, AWAKE ALERT AND INTERACTIVE, RESPIRATIONS EVEN AND UNLABORED ON ROOM AIR, NO SOB, COUGH OR CONGESTION. NO COMPLAINT OF PAIN OR DISCOMFORT AT THIS TIME. IV ACCESS ON THE L AC 20G WITH NS @80ML/HR AND TOLERATING. SP EGD AND COLONOSCOPY DR MCGEE AWARE TO FOLLOW FOR FURTHER DISCHARGE PLANNING. BED IN LOWEST LOCKED POSITION, CALL LIGHT WITHIN REACH AT ALL TIMES, WILL CONTINUE TO MONITOR, AND ENDORSE TO NEXT SHIFT FOR CONTINUITY OF CARE
--- NOTE | 2018-12-16 19:26 | NUR ---
RN OPENING NOTES RECEIVED PATIENT AWAKE, RESTING COMFORTABLY IN BED. A/O X4. NO SIGNS OF RESPIRATORY DISTRESS. DENIES SHORTNESS OF BREATH. DENIES PAIN AT THIS TIME. IV SITE PATENT AND INTACT. SAFETY PRECAUTIONS IMPLEMENTED. CALL LIGHT WITHIN REACH. WILL CONTINUE TO MONITOR PATIENT THROUGHOUT THE SHIFT.
--- NOTE | 2018-12-16 21:00 | NUR ---
RN NOTES VITAL SIGNS 118/70, PULSE 68, RESPIRATIONS 18, TEMP 98.6, PULSE O2 96
[2018-12-16] MEDS: PANTOPRAZOLE 40 MG VIAL IV SCH (21:06)
[2018-12-16] MEDS: TEMAZEPAM 15 MG CAPSULE PO PRN (21:06)
[2018-12-17] MEDS: IV NS 0.9% 1,000 ML IV PRN ×2 (02:30→22:40)
[2018-12-17] MEDS: INSULIN NPH, HUMAN ISOPHANE 100 UNIT/ML VIAL SQ SCH ×3 (05:00→21:00)
--- NOTE | 2018-12-17 05:47 | NUR ---
RN NOTES BLOOD SUGAR 268. PATIENT DENIES NOVOLIN AND REGULAR INSULIN. PATIENT STATES "IT WILL DROP HIS BLOOD SUGAR TOO MUCH." EXPLAINED THE RISKS AND BENEFITS FOR THESE MEDICATIONS.
[2018-12-17 06:18] LABS: BASOPHILS % (AUTO) 0.5 % (0.0-2.0); EOSINOPHILS % (AUTO) 3.5 % (0.0-6.0); HEMATOCRIT 22 % (39-51); HEMOGLOBIN 7.2 g/dL (13.5-17.5); LYMPHOCYTES # (AUTO) 3.5 /CMM (0.8-4.8); LYMPHOCYTES % (AUTO) 36.5 % (20.0-44.0); MEAN CORPUSCULAR HGB CONC 33 g/dl (31.0-36.0); MEAN CORPUSCULAR VOLUME 83 fL (80-96); MONOCYTES # (AUTO) 0.9 /CMM (0.1-1.30); MONOCYTES % (AUTO) 9.8 % (2.0-12.0); NEUTROPHILS # (AUTO) 4.7 /CMM (1.8-8.9); NEUTROPHILS % (AUTO) 49.7 % (43.0-81.0); PLATELET COUNT (AUTO) 217 /CMM (150-450); RED BLOOD CELL COUNT(AUTO) 2.63 MIL/uL (4.5-6.0); WHITE BLOOD COUNT (AUTO) 9.5 K/uL (4.3-11.0)
--- NOTE | 2018-12-17 06:46 | NUR ---
RN CLOSING NOTES PATIENT IS ASLEEP, RESTING COMFORTABLY IN BED AT THIS TIME. NO SIGNS OF RESPIRATORY DISTRESS NOTED. NO SIGNS OF SHORTNESS OF BREATH. PATIENT HAS NO SIGNS OF FACIAL GRIMACING INDICATING PAIN AT THIS TIME. IV SITE INTACT AND PATENT. SAFETY PRECAUTIONS IMPLEMENTED. CALL LIGHT WITHIN REACH. WILL ENDORSE TO AM RN.
[2018-12-17 06:48] LABS: CALCIUM, SERUM 8.1 mg/dL (8.5-10.1); CREATININE 1.5 mg/dL (0.6-1.3); POTASSIUM 3.8 mmol/L (3.5-5.1)
--- NOTE | 2018-12-17 07:30 | NUR ---
JAYLASUCARLI RN OPENING NOTES RECEIVED PT FORM NIGHT NURSE. PT IS ALEART AND ORIENTED X4. PT RESPIRATION IS EQUAL, CLEAR AND UNLABORED. NO COUGH. NO EDEMA TO LEGS OR HANDS. IV IS ON LEFT AC # 20G. NS FLUID @80 ML/HR. BOWEL SOUNDS HEARD ON 4 QUADRANTS. LAST BM WAS LAST NIGHT. SKIN IS INTACT. PT DENIES PAIN OR ANY DISCOMFORT. BED AT LOW POSITION. CALL IS WITHIN REACH. WILL CONTINUE TO MONITOR PT AND ASSIST NEEDS.
[2018-12-17] MEDS: BLOOD SUGAR DIAGNOSTIC 1 EACH STRIP IN SCH ×4 (07:56→21:32)
[2018-12-17 08:00] VITALS: BP 93/60
[2018-12-17] MEDS: GABAPENTIN 400 MG CAPSULE PO SCH ×3 (08:53→16:32)
[2018-12-17] MEDS: HYDROCORTISONE 0.5% CREAM 28.35 GM TUBE TP SCH (09:04)
--- NOTE | 2018-12-17 12:00 | NUR ---
KARTIK RN NOTES PT BLOOD SUGAR IS 196 AND REFUSE THE INSULIN. PT BELIEVE IT WILL MAKE HIM SICK. WILL CONTINUE TO MONITOR.
--- NOTE | 2018-12-17 13:56 | NUR ---
RN MEDSURG NOTES PT IS RESTING IN BED WATCHING TV. NO SOB. DENIES PAIN OR ANY DISCOMFORT. IV FLUID IS RUNNING. BED AT LOW POSITION. CALL LIGHT IS WITHIN REACH. WILL CONTINUE TO MONITOR
[2018-12-17 16:00] VITALS: BP 128/59
--- NOTE | 2018-12-17 19:30 | NUR ---
RN MEDSUR NOTES PT IS ALERT AND ORIENTED X4. PT WAS SEEN BY DR. MCGEE TODAY. PT REFUSE INSULIN, TEACHING PROVIDED AND STILL PT REFUSE THE INSULIN. PT IS RESTING IN BED WATCHING TV. RESPIRATION IS EQUAL, CLEAR AND UNLABORED. NO SOB. NO PAIN. IV IS INTACT AND PATENT AND IV FLUID IS RUNNING AT 80 ML/HR. BED AT LOW POSITION AND CALL LIGHT IS WITHIN REACH.
[2018-12-17 20:00] VITALS: BP 110/70
[2018-12-17] MEDS: TEMAZEPAM 15 MG CAPSULE PO PRN (21:30)
[2018-12-17] MEDS: PANTOPRAZOLE 40 MG VIAL IV SCH (21:33)
--- NOTE | 2018-12-17 21:55 | NUR ---
MS RN NOTE: PATIENT C/O NERVE PAIN, ASKING FOR NEURONTIN, INFORMED HIM THAT HE HAD [address]IENT [address] TO [address]. MCGEE. CAYLA BUCIO NEON TECHNICIAN, SPOKE TO DR. SHABAZZ, NO NEW ORDER GIVEN. PATIENT WAS INFORMED.
[2018-12-17] MEDS ORDERED: ATORVASTATIN 10 MG TABLET PO SCH (22:00)
--- NOTE | 2018-12-17 22:25 | NUR ---
PAGED DR. MCGEE THIS TIME, SPOKE TO HIM, RE: PATIENT C/O NERVE PAIN AND REQUESTING FOR NEURONTIN, NO NEW ORDER GIVEN.
--- NOTE | 2018-12-17 22:25 | NUR ---
MS RN NOTE RECEIVED PT IN STABLE CONDITION, A&O X4, ABLE TO MAKE NEEDS KNOWN. NO SIGNS OF SOB OR DISTRESS. NO C/O PAIN. ALL CURRENT NEEDS MET. SAFETY PRECAUTIONS IN PLACE: BED LOW, LOCKED, UPPER RAILS UP, AND CALL LIGHT WITHIN REACH. WILL CONT TO MONITOR.
--- NOTE | 2018-12-17 22:40 | NUR ---
REPORT GIVEN TO JANINE GUERRERO FOR CONTINUITY OF CARE.
[2018-12-18] MEDS: INSULIN NPH, HUMAN ISOPHANE 100 UNIT/ML VIAL SQ SCH ×2 (05:28→12:08)
[2018-12-18] MEDS: INSULIN REGULAR, HUMAN 100 UNIT/ML 3 ML VIAL SQ PRN (06:22)
[2018-12-18] MEDS: BLOOD SUGAR DIAGNOSTIC 1 EACH STRIP IN SCH ×2 (06:30→11:23)
--- NOTE | 2018-12-18 06:35 | NUR ---
MS RN NOTE RECEIVED PT IN STABLE CONDITION, A&O X4, ABLE TO MAKE NEEDS KNOWN. NO SIGNS OF SOB OR DISTRESS. NO C/O PAIN. ALL CURRENT NEEDS MET. SAFETY PRECAUTIONS IN PLACE: BED LOW, LOCKED, UPPER RAILS UP, AND CALL LIGHT WITHIN REACH. WILL CONT TO MONITOR AND ENDORSE TO NEXT SHIFT FOR BUTCH.
--- NOTE | 2018-12-18 07:36 | NUR ---
RN OPENING NOTE PT WAS RECEIVED IN BED AT LOWEST AND LOCKED POSITION WITH SIDE RAILS UP X2, A/O X4, BREATHING EVEN AND UNLABORED ON RA WITH NO CURRENT COMPLAINTS OF ANY PAIN OR DISTRESS, IV IS PATENT AND INTACT WITH IVF INFUSING, INFORMED BY W[employer] INSTALLER RN THAT PATIENT IS SOME NON-COMPLIANT WITH INSULIN COVERAGE, SAFETY PRECAUTIONS IN PLACE, CALL LIGHT WITHIN REACH, WILL MONITOR ACCORDINGLY.
[2018-12-18] MEDS: GABAPENTIN 400 MG CAPSULE PO SCH ×3 (08:08→16:36)
[2018-12-18] MEDS: HYDROCORTISONE 0.5% CREAM 28.35 GM TUBE TP SCH (08:09)
[2018-12-18 08:27] VITALS: BP 127/64
--- NOTE | 2018-12-18 11:22 | NUR ---
RN NOTE PATIENT BLOOD GLUCOSE WAS TAKEN AND NOTED TO BE 135. PATIENT REFUSED INSULIN COVERAGE STATING HE DOES NOT NEED IT. EDUCATION ABOUT INSULIN AND REFUSAL PROVIDED. WILL MONITOR PT ACCORDINGLY.
[2018-12-18 15:50] VITALS: BP 117/74
--- NOTE | 2018-12-18 16:29 | NUR ---
RN NOTE REPORT WAS GIVEN TO VIANCA AT [facility] AT THIS TIME
--- NOTE | 2018-12-18 17:06 | NUR ---
DISCHARGE NOTE PT WAS D/C AT THIS TIME IN MEDICALLY STABLE CONDITION BACK TO [facility] WHERE REPORT WAS GIVEN TO VIANCA. ALL D/C PAPERWORK, EXITCARE, AND BELONGINGS LIST WERE DISCUSSED, SIGNED, AND HANDED TO THE PT. HE LEFT WITH ALL HIS BELONGINGS IN HIS PERSONAL BACKPACK. IV AND ID BAND WERE REMOVED. SKIN WAS DRY AND INTACT. ALL NEEDS WERE ATTENDED TO DURING HIS STAY. HE WAS TAKEN DOWN BY ME IN WHEELCHAIR WHERE HE LEFT WITH [facility] AT THIS TIME.
== END 2018-12-18 17:00 | DRG 241 ==
LOC: ER 15:49 → TELE 17:50 → MED 12-15 08:50
PROVIDERS: ADMIT Internal Medicine; ATTEND Internal Medicine
DX: K29.81 Duodenitis with bleeding (principal); E13.22 Other specified diabetes mellitus with diabetic chronic kidney disease; E13.40 Other specified diabetes mellitus with diabetic neuropathy, unspecified; F20.9 Schizophrenia, unspecified; D62 Acute posthemorrhagic anemia; N18.3 Chronic kidney disease, stage 3 (moderate); K21.9 Gastro-esophageal reflux disease without esophagitis; Z91.19 Patient's noncompliance with other medical treatment and regimen; F41.9 Anxiety disorder, unspecified; G47.00 Insomnia, unspecified; Z87.891 Personal history of nicotine dependence; J44.9 Chronic obstructive pulmonary disease, unspecified; K31.4 Gastric diverticulum; K57.30 Diverticulosis of large intestine without perforation or abscess without bleeding; D12.0 Benign neoplasm of cecum; K86.0 Alcohol-induced chronic pancreatitis; M19.90 Unspecified osteoarthritis, unspecified site
CPT/HCPCS: 36415; 80048-TC; 80053-TC; 80076-TC; 82272-TC; 82962-TC; 83690-TC; 84484-TC; 85025-TC; 85610-TC; 87081-TC; 88305-TC; 88313-TC; 88342; 97530-TC; C9113; G0378; J1815; J2704; J3490; J7030; J7040

== ENCOUNTER → 2023-01-07 | Emergency (ER) | payer MEDICAID, OTHER ==
[~2023-01-07] VITALS: Ht 157.5 cm; Wt 63.5 kg
[~2023-01-07] MED LIST changes: +ACET-73 PO; +ACET325T53 PO; +ASPI-1420 PO; -ATOR40TA PO; +ATOR80TA PO; +BENA5TAB5 PO; +BISA10SU61 RC; +CETI10CA PO; +CHOL200026 PO; +DOCU100C36 PO; +EMPA10TA PO; -ETHAMBUTOL HCL PO; -FERR325T28 PO; -GABA-534 PO; +GABA-536 PO; -GABA100C PO; -INSU100I19 SQ; +INSU100V36 SQ; -ISON300T19 PO; +IV NS 0.9% 500 ML IV ONE; +LACT-215 PO; -LEFL20TA PO; +MAGN400O6 PO; -MELA3TAB PO; +MIRT-121 PO; +MORPHINE SULFATE INJ 2 MG/ML DISP.SYRIN IV ONE; +MORPHINE SULFATE INJ 2 MG/ML DISP.SYRIN ONE; +NA P133E RC; +NPH,100V SQ; +ONDANSETRON HCL/PF - ER 4 MG/2 ML VIAL IV ONE; +ONDANSETRON HCL/PF 4 MG/2 ML VIAL ONE; -PARO10TA86 PO; -PYRA500T13 PO; -PYRI50TA15 PO; -QUET25TA PO; -RIFA300C2 PO; -SITA100T PO; +TEMA15CA5 PO
--- NOTE | 2023-01-07 13:35 | NUR ---
PT IN BED 6, A.O X4 BREATHING IS UNLABORED COMPLAINING OF PAIN 8/10 FOR 4 DAYS MIX OF LOSS STOOL AND CONSTIPATION HX OF ALCOHOL WITHDRAWAL AND FREQUENT USER OF RESTORIL PT THINKS THIS MIGHT BE RELATED TO CURRENT SYMPTOMS. C/O: BLOOD IN STOOL N/V FOR 4 DAYS. CONNECTED TO BEDSIDE MONITOR IN BED LOW FOWLERS, BED LOCKED IN LOWEST POSTION.
--- NOTE | 2023-01-07 13:39 | NUR ---
BG 109
--- NOTE | 2023-01-07 13:39 | NUR ---
20G STARTED LAC BLOOD DRAWN AND SENT TO LAB
[2023-01-07 14:09] LABS: ALANINE AMINOTRANSFERASE 19 U/L (12-78); ALBUMIN 3.3 g/dL (3.4-5.0); ALKALINE PHOSPHATASE 72 U/L (46-116); ASPARTATE AMINOTRANSFERASE 12 U/L (15-37); BILIRUBIN,TOTAL 0.2 mg/dL (0.2-1.0); CARBON DIOXIDE 26 mmol/L (21-32); CHLORIDE 106 mmol/L (98-107); CREATININE 1.4 mg/dL (0.6-1.3); GLUCOSE 125 mg/dL (74-106); POTASSIUM 3.4 mmol/L (3.5-5.1); SODIUM SERUM 139 mmol/L (136-145); TOTAL PROTEIN, SERUM 6.3 g/dL (6.4-8.2); UREA NITROGEN, BLOOD 34 mg/dL (7-18)
[2023-01-07 14:46] LABS: BASOPHILS # (AUTO) 0.1 K/uL (0.0-0.2); BASOPHILS % (AUTO) 1.1 % (0.0-2.0); EOSINOPHILS % (AUTO) 1.7 % (0.0-6.0); HEMATOCRIT 27 % (39-51); HEMOGLOBIN 8.8 g/dL (13.5-17.5); LYMPHOCYTES # (AUTO) 2.1 K/uL (0.8-4.8); LYMPHOCYTES % (AUTO) 19.1 % (20.0-44.0); MEAN CORPUSCULAR HGB CONC 32 g/dl (31.0-36.0); MEAN CORPUSCULAR VOLUME 88 fL (80-96); MONOCYTES # (AUTO) 1.2 K/uL (0.1-1.30); MONOCYTES % (AUTO) 11.1 % (2.0-12.0); NEUTROPHILS # (AUTO) 7.4 K/uL (1.8-8.9); PLATELET COUNT (AUTO) 236 K/uL (150-450); RED BLOOD CELL COUNT(AUTO) 3.11 MIL/uL (4.5-6.0)
[2023-01-07 16:21] VITALS: BP 113/85
--- NOTE | 2023-01-07 17:05 | NUR ---
CALLED [facility] AND SET UP BLS TRANSPORT ETA 1735
--- NOTE | 2023-01-07 17:27 | NUR ---
REPORT GIVEN TO MAGEN MEHTA AT [facility].
--- NOTE | 2023-01-07 17:51 | NUR ---
transport back to facility arrived pts vitals stable dc paper work given and education provided by doc and nurse.
== END | disposition home or self-care (01) ==
LOC: ER 13:00
DX: K59.00 Constipation, unspecified (principal); R10.30 Lower abdominal pain, unspecified; I10 Essential (primary) hypertension; E11.9 Type 2 diabetes mellitus without complications; Z79.899 Other long term (current) drug therapy; Z79.82 Long term (current) use of aspirin; Z79.4 Long term (current) use of insulin; Z91.040 Latex allergy status; Z88.1 Allergy status to other antibiotic agents
CPT/HCPCS: 99285; 74176; 96374; 71045; 96375; 93005; 85025; 80048; 83690; 80076; 36415; 84484; 83880; 82962; J2405 ×2; J2270

== ENCOUNTER 2024-09-03 21:02 | Inpatient (IN) | payer OTHER ==
[~2024-09-03] VITALS: Ht 157.5 cm; Wt 54.9 kg
[~2024-09-03 21:02] MED LIST changes: -IV NS 0.9% 500 ML IV ONE; -MORPHINE SULFATE INJ 2 MG/ML DISP.SYRIN IV ONE; -MORPHINE SULFATE INJ 2 MG/ML DISP.SYRIN ONE; -ONDANSETRON HCL/PF - ER 4 MG/2 ML VIAL IV ONE; -ONDANSETRON HCL/PF 4 MG/2 ML VIAL ONE
[2024-09-03 21:36] LABS: BASOPHILS # (AUTO) 0.1 K/uL (0.0-0.2); BASOPHILS % (AUTO) 0.4 % (0.0-2.0); EOSINOPHILS # (AUTO) 0.2 K/uL (0.0-0.7); EOSINOPHILS % (AUTO) 1.1 % (0.0-6.0); HEMATOCRIT 40 % (39-51); HEMOGLOBIN 12.8 g/dL (13.5-17.5); LYMPHOCYTES # (AUTO) 6.2 K/uL (0.8-4.8); LYMPHOCYTES % (AUTO) 34.8 % (20.0-44.0); MEAN CORPUSCULAR HEMOGLOBIN 28 PG (26.0-33.0); MEAN CORPUSCULAR HGB CONC 32 g/dl (31.0-36.0); MEAN CORPUSCULAR VOLUME 87 fL (80-96); MONOCYTES # (AUTO) 1.6 K/uL (0.1-1.30); MONOCYTES % (AUTO) 9.1 % (2.0-12.0); NEUTROPHILS # (AUTO) 9.8 K/uL (1.8-8.9); NEUTROPHILS % (AUTO) 54.6 % (43.0-81.0); PLATELET COUNT (AUTO) 426 K/uL (150-450); RED BLOOD CELL COUNT(AUTO) 4.62 MIL/uL (4.5-6.0); WHITE BLOOD COUNT (AUTO) 17.9 K/uL (4.3-11.0)
[2024-09-03 21:49] LABS: CALCIUM, SERUM 9.7 mg/dL (8.5-10.1); CARBON DIOXIDE 14 mmol/L (21-32); CHLORIDE 95 mmol/L (98-107); CREATININE 2.8 mg/dL (0.6-1.3); GLUCOSE 266 mg/dL (74-106); SODIUM SERUM 128 mmol/L (136-145); UREA NITROGEN, BLOOD 42 mg/dL (7-18)
[2024-09-03] MEDS ORDERED: LORAZEPAM INJ 2 MG/ML VIAL ONE (21:49)
[2024-09-03] MEDS ORDERED: ATROPINE SULFATE INJ 1 MG/ML VIAL ONE (21:49)
[2024-09-03] MEDS: LORAZEPAM INJ 2 MG/ML VIAL IV ONE (21:50)
[2024-09-03] MEDS: ATROPINE SULFATE INJ 1 MG/ML VIAL IV ONE (21:51)
[2024-09-03 22:02] LABS: ALANINE AMINOTRANSFERASE 21 U/L (12-78); ALBUMIN 3.1 g/dL (3.4-5.0); ALCOHOL, BLOOD < 3 mg/dL (0-10); ALKALINE PHOSPHATASE 167 U/L (46-116); ASPARTATE AMINOTRANSFERASE 20 U/L (15-37); BILIRUBIN,TOTAL 0.3 mg/dL (0.2-1.0); MAGNESIUM 2.3 mg/dL (1.8-2.4); NT-PRO BNP 171 pg/mL (0-125); TOTAL PROTEIN, SERUM 7.5 g/dL (6.4-8.2)
[2024-09-03] MEDS ORDERED: DEXTROSE 50%-WATER 50 ML DISP.SYRIN ONE (22:22)
[2024-09-03] MEDS ORDERED: Calcium Gluconate 0.465 MEQ/ML VIAL IV ONE (22:22)
[2024-09-03] MEDS ORDERED: SODIUM BICARBONATE SYR 50 MEQ/50 ML DISP.SYRIN ONE (22:22)
[2024-09-03] MEDS ORDERED: INSULIN REGULAR, HUMAN 100 UNIT/ML 10 ML VIAL ONE (22:23)
[2024-09-03] MEDS ORDERED: SODIUM POLYSTYRENE SULFONATE 15 G/60 ML BOTTLE ONE (22:23)
[2024-09-03] MEDS: Calcium Gluconate 1GM/10ML 4.65 MEQ in IV NS 0.9% 100 ML IV ONE (22:38)
[2024-09-03] MEDS: SODIUM BICARBONATE SYR 50 MEQ/50 ML DISP.SYRIN IV ONE (22:40)
[2024-09-03] MEDS: INSULIN REGULAR, HUMAN 100 UNIT/ML 10 ML VIAL IV ONE (22:40)
[2024-09-03] MEDS: SODIUM POLYSTYRENE SULF. PWD 15 GM UDC PO ONE (22:41)
[2024-09-03] MEDS: DEXTROSE 50%-WATER 50 ML DISP.SYRIN IVP ONE (22:41)
[2024-09-03 22:47] LABS: LACTIC ACID 9.9 mmol/L (0.4-2.0)
[2024-09-03] MEDS: IV NS 0.9% 1,000 ML IV ONE (22:56)
[2024-09-03] MEDS ORDERED: VANCOMYCIN 500 MG VIAL ONE (22:59)
[2024-09-03] MEDS ORDERED: VANCOMYCIN 1 GM /D5W 250 ML PB IV ONE (22:59)
[2024-09-03] MEDS: VANCOMYCIN HCL 1.25 GM in IV D5W 260 ML IV ONE (23:03)
[2024-09-04 00:05] LABS: CALCIUM, SERUM 9.4 mg/dL (8.5-10.1); CREATININE 2.7 mg/dL (0.6-1.3)
[2024-09-04 00:15] LABS: POTASSIUM 6.5 mmol/L (3.5-5.1)
[2024-09-04] MEDS ORDERED: Z GUARD REMEDY 4 OZ OINT TP PRN (00:30)
[2024-09-04] MEDS ORDERED: ONDANSETRON HCL/PF 4 MG/2 ML VIAL IVP PRN (00:30)
[2024-09-04] MEDS ORDERED: MAGNESIUM HYDROXIDE 30 ML UDC PO PRN (00:30)
[2024-09-04] MEDS ORDERED: DEXTROSE 50%-WATER 50 ML DISP.SYRIN IV PRN (00:30)
[2024-09-04] MEDS ORDERED: LORAZEPAM INJ 2 MG/ML VIAL IV PRN (01:00)
[2024-09-04 01:30] LABS: BILIRUBIN,DIRECT 0.1 mg/dL (0.0-0.2)
[2024-09-04 01:44] LABS: LACTIC ACID REFLEX 4.9 mmol/L (0.4-1.9)
[2024-09-04] MEDS ORDERED: ENOXAPARIN SODIUM 30 MG/0.3 ML DISP.SYRIN ONE (01:47)
[2024-09-04] MEDS: ENOXAPARIN SODIUM 30 MG/0.3 ML DISP.SYRIN SQ SCH ×2 (01:48→22:01)
[2024-09-04 06:45] LABS: BASOPHILS # (AUTO) 0.1 K/uL (0.0-0.2); BASOPHILS % (AUTO) 0.5 % (0.0-2.0); EOSINOPHILS # (AUTO) 0.1 K/uL (0.0-0.7); EOSINOPHILS % (AUTO) 1.1 % (0.0-6.0); HEMATOCRIT 38 % (39-51); HEMOGLOBIN 12.6 g/dL (13.5-17.5); LYMPHOCYTES # (AUTO) 4.2 K/uL (0.8-4.8); LYMPHOCYTES % (AUTO) 32.3 % (20.0-44.0); MEAN CORPUSCULAR HEMOGLOBIN 29 PG (26.0-33.0); MEAN CORPUSCULAR HGB CONC 33 g/dl (31.0-36.0); MEAN CORPUSCULAR VOLUME 87 fL (80-96); MONOCYTES # (AUTO) 1.4 K/uL (0.1-1.30); MONOCYTES % (AUTO) 10.5 % (2.0-12.0); NEUTROPHILS # (AUTO) 7.1 K/uL (1.8-8.9); NEUTROPHILS % (AUTO) 55.6 % (43.0-81.0); PLATELET COUNT (AUTO) 429 K/uL (150-450); RED BLOOD CELL COUNT(AUTO) 4.41 MIL/uL (4.5-6.0); RED CELL DISTRIBUTION WIDTH 16.2 % (11.5-15.0); WHITE BLOOD COUNT (AUTO) 12.8 K/uL (4.3-11.0)
[2024-09-04 07:03] LABS: THYROID STIMULATING HORMONE 1.88 uIU/mL (0.358-3.74)
[2024-09-04 07:04] LABS: BILIRUBIN,DIRECT 0.1 mg/dL (0.0-0.2); BILIRUBIN,TOTAL 0.4 mg/dL (0.2-1.0); CALCIUM, SERUM 9.7 mg/dL (8.5-10.1); CREATININE 2.2 mg/dL (0.6-1.3); PHOSPHORUS 4.2 mg/dL (2.5-4.9); POTASSIUM 4.9 mmol/L (3.5-5.1); TOTAL PROTEIN, SERUM 7.3 g/dL (6.4-8.2)
[2024-09-04] MEDS: BLOOD SUGAR DIAGNOSTIC 1 EACH STRIP IN SCH (07:57)
[2024-09-04 08:50] VITALS: BP 108/73; TEMP 97.5
[2024-09-04] MEDS: PANTOPRAZOLE 40 MG TABLET.DR PO SCH (09:41)
[2024-09-04] MEDS ORDERED: BISM-126 PO (10:34)
[2024-09-04] MEDS ORDERED: INSU100I26 SQ (10:34)
[2024-09-04] MEDS ORDERED: SPIR25TA6 PO (10:34)
[2024-09-04] MEDS ORDERED: ASPI-1169 PO (10:34)
[2024-09-04] MEDS ORDERED: INSU100I40 SQ ×2 (10:34)
[2024-09-04] MEDS ORDERED: ATOR40TA PO (10:34)
[2024-09-04] MEDS ORDERED: GABA300C PO (10:34)
[2024-09-04] MEDS ORDERED: SENN-261 PO (10:34)
[2024-09-04] MEDS ORDERED: DOCU100C36 PO (10:34)
[2024-09-04] MEDS ORDERED: METF-442 PO (10:34)
[2024-09-04] MEDS ORDERED: HYDR50TA61 PO (10:34)
[2024-09-04] MEDS ORDERED: MAG30ORA PO (10:34)
[2024-09-04] MEDS ORDERED: DIPH25TA27 PO (10:34)
[2024-09-04] MEDS ORDERED: GABAPENTIN 400 MG CAPSULE PO SCH (11:00)
[2024-09-04] MEDS ORDERED: SENNOSIDES 8.6 MG TABLET PO PRN (11:30)
[2024-09-04 12:00] VITALS: BP 109/77; TEMP 98.4; O2SAT 94
[2024-09-04] MEDS ORDERED: BISMUTH SUBSALICYLATE TAB 262 MG TAB.CHEW PO PRN (12:00)
[2024-09-04] MEDS ORDERED: BISMUTH SUBSALICYLATE 262 MG/15 ML BOTTLE PO PRN (12:30)
[2024-09-04] MEDS ORDERED: GABAPENTIN 300 MG CAPSULE PO SCH (13:00)
[2024-09-04] MEDS: INSULIN REGULAR, HUMAN 100 UNIT/ML 3 ML VIAL SQ PRN (13:05)
[2024-09-04] MEDS: GABAPENTIN 300 MG CAPSULE PO SCH (13:17)
[2024-09-04] MEDS: ENSURE CLEAR 237 ML LIQUID (MIX BERRY) PO SCH (13:17)
[2024-09-04 13:53] LABS: BAND % (MANUAL) 1 % (0.0-5.0); EOSINOPHILS % (MANUAL) 1 % (0-4); LYMPHOCYTES % (MANUAL) 46 % (16-48); MONOCYTES % (MANUAL) 8 % (0-11.0); MYELOCYTES % 2 % (0-0); NEUTROPHILS % (MANUAL) 42 (42-76)
[2024-09-04 13:54] LABS: ANISOCYTOSIS 1+; PLATELET ESTIMATE ADEQUATE
[2024-09-04 14:38] LABS: THYROID STIMULATING HORMONE 1.49 uIU/mL (0.358-3.74)
[2024-09-04] MEDS: DOCUSATE SODIUM 100 MG CAPSULE PO SCH (17:08)
[2024-09-04] MEDS: MAG HYDROX/AL HYDROX/SIMETH 30 ML UDC PO PRN (17:18)
[2024-09-04 17:52] LABS: APPEARANCE,URINE CLEAR (CLEAR); BILIRUBIN,URINE NEGATIVE (NEGATIVE); BLOOD, URINE NEGATIVE Ery/uL (NEGATIVE); COLOR,URINE YELLOW (YELLOW); KETONES,URINE NEGATIVE (NEGATIVE); LEUKOCYTE ESTERASE ,URINE NEGATIVE (NEGATIVE); NITRITE, URINE NEGATIVE (NEGATIVE); PH,URINE 5.5 (5.0-8.0); PROTEIN,URINE NEGATIVE (NEGATIVE); UGLUCOSE 1+ mg/dL (NEGATIVE); UROBILINOGEN,URINE 0.2 EU/dL (0.2)
[2024-09-04 18:04] LABS: CREATININE, URINE 56.6 MG/DL (30.0-125.0); URINE TOTAL PROTEIN 25.9 mg/dL (0-11.9)
[2024-09-04 18:07] LABS: AMPHETAMINE, URINE NEGATIVE (NEGATIVE); BARBITURATE, URINE NEGATIVE (NEGATIVE); CANNABINOID, URINE NEGATIVE (NEGATIVE); COCCAINE, URINE NEGATIVE (NEGATIVE); OPIATE, URINE NEGATIVE (NEGATIVE); PHENCYCLIDINE SCREEN,URINE NEGATIVE (NEGATIVE)
[2024-09-04 18:09] LABS: BENZODIAZEPINE, URINE POSITIVE (NEGATIVE)
[2024-09-04 18:22] LABS: ADD URINE CULTURE NO; BACTERIA,URINE Rare /HPF (None Seen); RBC,URINE NONE SEEN /HPF (0-2); SQUAMOUS EPITHELIAL CELL,UR None Seen /HPF (None Seen)
[2024-09-04 18:24] LABS: WBC,URINE 0-2 /HPF (0-3)
[2024-09-04 18:40] LABS: EOSINOPHIL,URINE None Seen
[2024-09-04 19:47] VITALS: BP_SYST 103; BP_SYST 114; BP_DIAS 72; BP_DIAS 76; TEMP 98
[2024-09-04 20:00] VITALS: BP 104/75; TEMP 98.1; O2SAT 97
[2024-09-04] MEDS: ATORVASTATIN 40 MG TABLET PO SCH (21:53)
[2024-09-05] VITALS (7 sets, daily range): BP systolic 90–120; BP diastolic 65–76; TEMP 97.7–98.8; O2SAT 97–100
[2024-09-05 06:42] LABS: BASOPHILS # (AUTO) 0.1 K/uL (0.0-0.2); BASOPHILS % (AUTO) 0.5 % (0.0-2.0); EOSINOPHILS # (AUTO) 0.2 K/uL (0.0-0.7); EOSINOPHILS % (AUTO) 1.5 % (0.0-6.0); HEMATOCRIT 34 % (39-51); HEMOGLOBIN 11.4 g/dL (13.5-17.5); LYMPHOCYTES # (AUTO) 4.2 K/uL (0.8-4.8); LYMPHOCYTES % (AUTO) 28.8 % (20.0-44.0); MEAN CORPUSCULAR HEMOGLOBIN 28 PG (26.0-33.0); MEAN CORPUSCULAR HGB CONC 33 g/dl (31.0-36.0); MEAN CORPUSCULAR VOLUME 85 fL (80-96); MONOCYTES # (AUTO) 1.4 K/uL (0.1-1.30); MONOCYTES % (AUTO) 9.2 % (2.0-12.0); NEUTROPHILS # (AUTO) 8.8 K/uL (1.8-8.9); PLATELET COUNT (AUTO) 420 K/uL (150-450); RED BLOOD CELL COUNT(AUTO) 4.06 MIL/uL (4.5-6.0); RED CELL DISTRIBUTION WIDTH 15.9 % (11.5-15.0); WHITE BLOOD COUNT (AUTO) 14.7 K/uL (4.3-11.0)
[2024-09-05 07:15] LABS: BILIRUBIN,TOTAL 0.4 mg/dL (0.2-1.0); CALCIUM, SERUM 9.1 mg/dL (8.5-10.1); CREATININE 1.8 mg/dL (0.6-1.3); MAGNESIUM 2.2 mg/dL (1.8-2.4); PHOSPHORUS 3.8 mg/dL (2.5-4.9); POTASSIUM 4.1 mmol/L (3.5-5.1); TOTAL PROTEIN, SERUM 6.8 g/dL (6.4-8.2)
[2024-09-05] MEDS: ASPIRIN 81 MG TAB.CHEW PO SCH (10:01)
[2024-09-05] MEDS: VANCOMYCIN 1 GM in IV D5W 250ml IV SCH (10:43)
[2024-09-05] MEDS: ACETAMINOPHEN 325 MG TABLET PO PRN (23:47)
[2024-09-06] VITALS: BP 109/72; TEMP 98.1; O2SAT 100
[2024-09-06 04:00] VITALS: BP_SYST 105; BP_SYST 121; BP_DIAS 70; BP_DIAS 75; TEMP 97.7; TEMP 98.8; O2SAT 98
[2024-09-06 07:06] LABS: PTH, INTACT 19 pg/mL (15-65)
[2024-09-06 07:36] LABS: BASOPHILS # (AUTO) 0.1 K/uL (0.0-0.2); BASOPHILS % (AUTO) 0.9 % (0.0-2.0); EOSINOPHILS # (AUTO) 0.1 K/uL (0.0-0.7); EOSINOPHILS % (AUTO) 1.1 % (0.0-6.0); HEMATOCRIT 32 % (39-51); HEMOGLOBIN 10.9 g/dL (13.5-17.5); LYMPHOCYTES # (AUTO) 4.2 K/uL (0.8-4.8); MEAN CORPUSCULAR HEMOGLOBIN 29 PG (26.0-33.0); MEAN CORPUSCULAR HGB CONC 34 g/dl (31.0-36.0); MEAN CORPUSCULAR VOLUME 84 fL (80-96); MONOCYTES # (AUTO) 1.5 K/uL (0.1-1.30); MONOCYTES % (AUTO) 11.9 % (2.0-12.0); NEUTROPHILS # (AUTO) 6.8 K/uL (1.8-8.9); NEUTROPHILS % (AUTO) 53.1 % (43.0-81.0); PLATELET COUNT (AUTO) 377 K/uL (150-450); RED CELL DISTRIBUTION WIDTH 15.5 % (11.5-15.0); WHITE BLOOD COUNT (AUTO) 12.8 K/uL (4.3-11.0)
[2024-09-06 08:00] VITALS: BP 118/77; TEMP 97.9; O2SAT 99
[2024-09-06 08:38] LABS: BILIRUBIN,TOTAL 0.4 mg/dL (0.2-1.0); CALCIUM, SERUM 9.2 mg/dL (8.5-10.1); CREATININE 1.7 mg/dL (0.6-1.3); MAGNESIUM 1.9 mg/dL (1.8-2.4); PHOSPHORUS 4.7 mg/dL (2.5-4.9); POTASSIUM 4.5 mmol/L (3.5-5.1); TOTAL PROTEIN, SERUM 6.5 g/dL (6.4-8.2)
[2024-09-06 10:16] LABS: EOSINOPHILS % (MANUAL) 1 % (0-4); LYMPHOCYTES % (MANUAL) 32 % (16-48); MONOCYTES % (MANUAL) 7 % (0-11.0); MYELOCYTES % 3 % (0-0); NEUTROPHILS % (MANUAL) 57 (42-76)
[2024-09-06 10:17] LABS: PLATELET ESTIMATE ADEQUATE
[2024-09-06] MEDS ORDERED: VANCOMYCIN 1 GM in IV D5W 250ml IV SCH (11:00)
[2024-09-06 12:00] VITALS: BP 101/71; TEMP 98.6; O2SAT 98
[2024-09-07 10:10] LABS: *SPE ALPHA-1-GLOBULIN 0.2 g/dL (0.0-0.4); *SPE ALPHA-2-GLOBULIN 0.9 g/dL (0.4-1.0); *SPE BETA GLOBULIN 1.2 g/dL (0.7-1.3); *SPE GLOBULIN, TOTAL 3.1 g/dL (2.2-3.9); *SPE M-SPIKE Not Observed g/dL (Not Observed); *SPE PROTEIN TOTAL 6.1 g/dL (6.0-8.5); *SPEGAMMA GLOBULIN 0.8 g/dL (0.4-1.8)
== END 2024-09-06 16:55 | DRG 53 ==
LOC: ER 21:04 → TRANSITION 09-04 00:07 → TELE 09-04 05:56
PROVIDERS: ADMIT Nurse Practitioner Family
DX: G40.A09 Absence epileptic syndrome, not intractable, without status epilepticus (principal); N17.0 Acute kidney failure with tubular necrosis; G93.40 Encephalopathy, unspecified; G93.41 Metabolic encephalopathy; E44.0 Moderate protein-calorie malnutrition; E87.20 Acidosis, unspecified; D68.59 Other primary thrombophilia; E87.1 Hypo-osmolality and hyponatremia; I49.5 Sick sinus syndrome; E87.5 Hyperkalemia; E88.09 Other disorders of plasma-protein metabolism, not elsewhere classified; E46 Unspecified protein-calorie malnutrition; Z20.822 Contact with and (suspected) exposure to COVID-19; N18.9 Chronic kidney disease, unspecified; I12.9 Hypertensive chronic kidney disease with stage 1 through stage 4 chronic kidney disease, or unspecified chronic kidney disease; K21.9 Gastro-esophageal reflux disease without esophagitis; F20.9 Schizophrenia, unspecified; E11.22 Type 2 diabetes mellitus with diabetic chronic kidney disease; E78.5 Hyperlipidemia, unspecified; F41.9 Anxiety disorder, unspecified; G89.29 Other chronic pain; Z90.49 Acquired absence of other specified parts of digestive tract; Z88.1 Allergy status to other antibiotic agents; Z91.040 Latex allergy status; Z79.4 Long term (current) use of insulin; Z79.84 Long term (current) use of oral hypoglycemic drugs; Z79.899 Other long term (current) drug therapy; Z79.82 Long term (current) use of aspirin; M06.9 Rheumatoid arthritis, unspecified; Z87.891 Personal history of nicotine dependence; E86.1 Hypovolemia; E86.0 Dehydration; D72.829 Elevated white blood cell count, unspecified
CPT/HCPCS: 36415; 71045-TC; 76770-TC; 80048-TC; 80053-TC; 80076-TC; 81001; 82248-TC; 82550-TC; 82570-TC; 82607-TC; 82962-TC; 83605-TC; 83735-TC; 83880; 83921; 83970; 84100-TC; 84132-TC; 84155; 84165; 84300-TC; 84425; 84443-TC; 84484-TC; 85025-TC; 87040-TC; 87086-TC; 95819-TC; A4223; G0378; G0480; J0461; J0612; J1650; J1815; J2060; J2405; J3370; J3490; J7030; J7060